=== PATIENT | male | born 1935 | race Caucasian/White ===

== ENCOUNTER 2016-10-15 07:16 | Day surgery (SDC) | payer MEDICARE, BC ==
[2016-10-15] VITALS (11 sets, daily range): BP systolic 127–173; BP diastolic 60–84; PULSE 57–66; TEMP 97.8–98.2
[~2016-10-15] VITALS: Ht 185.4 cm; Wt 119.7 kg
[2016-10-15] MEDS ORDERED: PRIL40 PO (07:48)
[2016-10-15] MEDS ORDERED: PROSCAR 5MG5 MG PO (07:48)
[2016-10-15] MEDS ORDERED: ZYLOPRIM 300MG300 MG PO (07:49)
[2016-10-15] MEDS ORDERED: LASIX 40MG TABL40 MG PO (07:49)
[2016-10-15] MEDS ORDERED: LIPITOR 40MG TA40 MG PO (07:50)
[2016-10-15] MEDS ORDERED: COUMADIN 3MG3 MG/TAB PO (07:50)
[2016-10-15] MEDS ORDERED: PRINIVIL40 MG PO (07:51)
[2016-10-15] MEDS ORDERED: NORVASC 5MG5 MG/TAB PO (07:51)
[2016-10-15] MEDS ORDERED: BYSTOLIC10 MG PO (07:52)
[2016-10-15] MEDS ORDERED: VITAMINC1000TA PO (07:52)
[2016-10-15] MEDS ORDERED: ASPIRIN 32325 MG/TAB PO (07:52)
[2016-10-15] MEDS ORDERED: VITAMIN D32000 IU PO (07:53)
[2016-10-15] MEDS ORDERED: EPA FISH OIL1 SGL PO (07:53)
[2016-10-15] MEDS ORDERED: FIBER0.52 GM PO (07:54)
[2016-10-15] MEDS ORDERED: LOVENOX 3030 MG/0.3 SQ (08:20)
[2016-10-15 08:32] LABS: INR 1.1 (0.8-3.0); PROTHROMBIN TIME 12.7 SECONDS (9.7-12.8)
[2016-10-16 01:58] VITALS: BP 161/75; PULSE 65; TEMP 97.6
[2016-10-16 05:07] VITALS: BP 151/71; PULSE 62; TEMP 97.7
== END 2016-10-16 11:01 | disposition home or self-care (01) ==
LOC: SDCO 07:16 → SURG 12:25 → SDCO 10-16 11:01
PROVIDERS: Surgery
DX: D34 Benign neoplasm of thyroid gland (principal); E04.1 Nontoxic single thyroid nodule; Z79.01 Long term (current) use of anticoagulants; Z95.0 Presence of cardiac pacemaker; Z95.5 Presence of coronary angioplasty implant and graft; Z86.010 Personal history of colon polyps; Z87.891 Personal history of nicotine dependence; J45.909 Unspecified asthma, uncomplicated; I10 Essential (primary) hypertension; I48.91 Unspecified atrial fibrillation; I25.10 Atherosclerotic heart disease of native coronary artery without angina pectoris; Z82.49 Family history of ischemic heart disease and other diseases of the circulatory system; G47.33 Obstructive sleep apnea (adult) (pediatric); K21.9 Gastro-esophageal reflux disease without esophagitis; M19.90 Unspecified osteoarthritis, unspecified site; N19 Unspecified kidney failure
CPT/HCPCS: OP; J0330; J0690; J2270; J2405; J2704; J3010; J7120

== ENCOUNTER 2016-10-28 11:38 | Inpatient (IN) | payer MEDICARE, BC ==
[~2016-10-28] VITALS: Ht 185.4 cm; Wt 121.3 kg
[2016-10-28] VITALS (323 sets, daily range): BP systolic 137–144; BP diastolic 73–86; PULSE 60–95; TEMP 96.8–98.1; O2SAT 81–100
[~2016-10-28 11:38] MED LIST: ASPIRIN 32325 MG/TAB PO; BYSTOLIC10 MG PO; COUMADIN 3MG3 MG/TAB PO; EPA FISH OIL1 SGL PO; FIBER0.52 GM PO; LASIX 40MG TABL40 MG PO; LIPITOR 40MG TA40 MG PO; LOVENOX 3030 MG/0.3 SQ; NORVASC 5MG5 MG/TAB PO; PRIL40 PO; PRINIVIL40 MG PO; PROSCAR 5MG5 MG PO; VITAMIN D32000 IU PO; VITAMINC1000TA PO; ZYLOPRIM 300MG300 MG PO
[2016-10-28] MEDS ORDERED: LASIX 20MG TABL20 MG PO (13:10)
[2016-10-28] MEDS ORDERED: COUMADIN 3MG3 MG/TAB PO (13:42)
[2016-10-28 14:38] LABS: BASO # 0.1 (0.0-0.2); BASO % 0.7 % (0.0-2.0); EOS # 0.1 (0.0-0.7); EOS % 0.6 % (0-4.0); GRAN # 7.6 (1.4-6.5); GRAN % 70.7 % (42.2-75.2); HEMATOCRIT 37.2 % (42.0-52.0); HEMOGLOBIN 12.7 g/dl (13.5-18.0); INR 3.5 (0.8-3.0); LYMPH # 2.3 (1.2-3.4); LYMPH % 21.6 % (20.0-51.0); MEAN CELL VOLUME 92 fl (80.0-100.0); MEAN CORPUSCULAR HEMOGLOBIN 32 pg (27.0-31.0); MEAN CORPUSCULAR HGB CONC 34 g/dl (33.0-37.0); MONO # 0.6 (0.1-0.6); MONO % 5.8 % (1.7-9.3); PLATELET COUNT 207 K/mm3 (130-400); PROTHROMBIN TIME 41.2 SECONDS (9.7-12.8); RED BLOOD COUNT 4.03 M/mm3 (4.20-5.60); WHITE BLOOD COUNT 10.7 K/mm3 (4.8-10.8)
[2016-10-28 14:45] LABS: ADJUSTED CALCIUM 8.6 mg/dL (8.4-10.2); ALBUMIN 3.6 gm/dL (3.5-5.0); BILIRUBIN,TOTAL 0.5 mg/dL (0.0-1.0); CALCIUM 8.3 mg/dL (8.4-10.2); TOTAL PROTEIN 6.6 gm/dL (6.4-8.2)
[2016-10-28 14:48] LABS: POTASSIUM 6.2 mmol/L (3.4-5.0)
[2016-10-28 14:56] LABS: CREATININE, serum 15.31 mg/dL (0.66-1.25)
[2016-10-28 21:33] LABS: CALCIUM 8.4 mg/dL (8.4-10.2)
[2016-10-28 21:40] LABS: POTASSIUM 5.8 mmol/L (3.4-5.0)
[2016-10-28 21:42] LABS: CREATININE, serum 15.14 mg/dL (0.66-1.25)
[2016-10-29] VITALS (528 sets, daily range): BP systolic 137–158; BP diastolic 65–87; PULSE 60–64; TEMP 97–98.2; O2SAT 86–100
[2016-10-29 06:42] LABS: BASO # 0.1 (0.0-0.2); BASO % 0.5 % (0.0-2.0); EOS # 0.3 (0.0-0.7); EOS % 3.1 % (0-4.0); GRAN # 6.2 (1.4-6.5); GRAN % 63.9 % (42.2-75.2); HEMATOCRIT 37.4 % (42.0-52.0); HEMOGLOBIN 12.6 g/dl (13.5-18.0); LYMPH # 2.4 (1.2-3.4); LYMPH % 24.8 % (20.0-51.0); MEAN CELL VOLUME 93 fl (80.0-100.0); MEAN CORPUSCULAR HEMOGLOBIN 31 pg (27.0-31.0); MEAN CORPUSCULAR HGB CONC 34 g/dl (33.0-37.0); MEAN PLATELET VOLUME 11.6 fl (7.4-10.4); MONO # 0.7 (0.1-0.6); MONO % 7.3 % (1.7-9.3); PLATELET COUNT 221 K/mm3 (130-400); RED BLOOD COUNT 4.03 M/mm3 (4.20-5.60); REDCELL DISTRIBUTION WIDTH-CV 14.9 % (11.5-14.5); WHITE BLOOD COUNT 9.8 K/mm3 (4.8-10.8)
[2016-10-29 06:59] LABS: CALCIUM 8.1 mg/dL (8.4-10.2); POTASSIUM 5.2 mmol/L (3.4-5.0)
[2016-10-29 07:14] LABS: CREATININE, serum 15.3 mg/dL (0.66-1.25)
[2016-10-29 08:36] LABS: INR 3.6 (0.8-3.0); PROTHROMBIN TIME 41.8 SECONDS (9.7-12.8)
[2016-10-29 12:40] LABS: PH 6 (5-8); SQUAMOUS EPITHELIAL None Seen /hpf; URINE APPEARANCE Hazy; URINE BACTERIA None Seen /hpf; URINE BILIRUBIN Negative (NEGATIVE); URINE BLOOD 3+ (NEGATIVE); URINE COLOR Red; URINE GLUCOSE Negative (NEGATIVE); URINE KETONE Negative (NEGATIVE); URINE RBC >50 /hpf; URINE UROBILINOGEN Negative (NEGATIVE)
[2016-10-29 12:43] LABS: URINE WBC >50 /hpf
[2016-10-29 17:11] LABS: URINE PROTEIN:CREAT RATIO 1.71 (0.00-0.14)
[2016-10-30 03:28] VITALS: BP 172/79; PULSE 64; TEMP 97.5
[2016-10-30 06:56] LABS: BASO # 0.1 (0.0-0.2); BASO % 0.4 % (0.0-2.0); EOS # 0.2 (0.0-0.7); EOS % 1.6 % (0-4.0); GRAN # 9.9 (1.4-6.5); GRAN % 76.7 % (42.2-75.2); HEMATOCRIT 36.4 % (42.0-52.0); HEMOGLOBIN 12.7 g/dl (13.5-18.0); LYMPH # 1.8 (1.2-3.4); LYMPH % 14.1 % (20.0-51.0); MEAN CELL VOLUME 91 fl (80.0-100.0); MEAN CORPUSCULAR HEMOGLOBIN 32 pg (27.0-31.0); MEAN CORPUSCULAR HGB CONC 35 g/dl (33.0-37.0); MEAN PLATELET VOLUME 11.6 fl (7.4-10.4); MONO # 0.9 (0.1-0.6); MONO % 6.8 % (1.7-9.3); PLATELET COUNT 228 K/mm3 (130-400); RED BLOOD COUNT 4.02 M/mm3 (4.20-5.60); REDCELL DISTRIBUTION WIDTH-CV 14.6 % (11.5-14.5); WHITE BLOOD COUNT 12.9 K/mm3 (4.8-10.8)
[2016-10-30 07:06] LABS: INR 2.5 (0.8-3.0); PROTHROMBIN TIME 29.3 SECONDS (9.7-12.8)
[2016-10-30 07:11] LABS: CALCIUM 7.5 mg/dL (8.4-10.2); POTASSIUM 5.2 mmol/L (3.4-5.0)
[2016-10-30 07:24] LABS: CREATININE, serum 15.67 mg/dL (0.66-1.25)
[2016-10-30 08:00] VITALS: BP 151/76; PULSE 59; TEMP 97.5
[2016-10-30 13:31] VITALS: BP 148/69; PULSE 59; TEMP 97.8
[2016-10-30 16:06] VITALS: BP 142/73; PULSE 61; TEMP 97.6
[2016-10-30 19:02] VITALS: BP 149/70; PULSE 61; TEMP 98.3
[2016-10-30 22:42] VITALS: BP 164/81; PULSE 59; TEMP 98.1
[2016-10-31] VITALS (9 sets, daily range): BP systolic 104–145; BP diastolic 49–78; PULSE 58–74; TEMP 97.9–98.6
[2016-10-31 07:43] LABS: INR 1.5 (0.8-3.0)
[2016-10-31 07:55] LABS: BASO # 0.1 (0.0-0.2); BASO % 0.4 % (0.0-2.0); EOS # 0.1 (0.0-0.7); GRAN # 10.4 (1.4-6.5); GRAN % 74.6 % (42.2-75.2); LYMPH # 2.5 (1.2-3.4); LYMPH % 17.6 % (20.0-51.0); MEAN CELL VOLUME 92 fl (80.0-100.0); MEAN CORPUSCULAR HEMOGLOBIN 31 pg (27.0-31.0); MEAN CORPUSCULAR HGB CONC 34 g/dl (33.0-37.0); MEAN PLATELET VOLUME 11.5 fl (7.4-10.4); MONO # 0.8 (0.1-0.6); PLATELET COUNT 232 K/mm3 (130-400); RED BLOOD COUNT 3.83 M/mm3 (4.20-5.60); REDCELL DISTRIBUTION WIDTH-CV 14.7 % (11.5-14.5)
[2016-10-31 07:56] LABS: HEMATOCRIT 35.1 % (42.0-52.0)
[2016-10-31 08:03] LABS: CALCIUM 7.4 mg/dL (8.4-10.2); POTASSIUM 5.3 mmol/L (3.4-5.0)
[2016-10-31 08:14] LABS: CREATININE, serum 16.37 mg/dL (0.66-1.25)
[2016-11-01] VITALS (18 sets, daily range): BP systolic 130–173; BP diastolic 58–89; PULSE 57–67; TEMP 97.7–98.2
[2016-11-01 08:10] LABS: INR 1.4 (0.8-3.0)
[2016-11-01 22:50] LABS: C-ANCA 18 U/mL (0-99); P-ANCA 6 U/mL (0-99)
[2016-11-01 23:56] LABS: HEPATITIS B CORE AB,TOTAL Negative (()); HEPATITIS B SURFACE AB-QL Negative (())
[2016-11-02 01:14] VITALS: BP 144/68; PULSE 62; TEMP 97.5
[2016-11-02 04:50] VITALS: BP 138/67; PULSE 62; TEMP 98.2
[2016-11-02 08:00] VITALS: BP 130/59; PULSE 61; TEMP 97.8
[2016-11-02 08:06] VITALS: BP 135/65; PULSE 64; TEMP 98.3
[2016-11-02 11:08] LABS: ALBUMIN 3.1 gm/dL (3.5-5.0); ANION GAP 19 mmol/L (7-16); CALCIUM 7.9 mg/dL (8.4-10.2); CHLORIDE 101 mmol/L (98-107); GLUCOSE 109 mg/dL (74-106); PHOSPHOROUS 8.9 mg/dL (2.5-4.5); SODIUM 135 mmol/L (137-145)
[2016-11-02 11:10] LABS: BLOOD UREA NITROGEN > 120 mg/dL (9-20)
[2016-11-02 11:12] LABS: CREATININE, serum 13.85 mg/dL (0.66-1.25)
[2016-11-02 11:13] LABS: CARBON DIOXIDE 14 mmol/L (22-30)
[2016-11-02 13:16] LABS: BASO # 0.1 (0.0-0.2); BASO % 0.5 % (0.0-2.0); EOS # 0.2 (0.0-0.7); EOS % 1.8 % (0-4.0); GRAN # 7.9 (1.4-6.5); GRAN % 76.8 % (42.2-75.2); LYMPH # 1.8 (1.2-3.4); LYMPH % 17.3 % (20.0-51.0); MEAN CELL VOLUME 92 fl (80.0-100.0); MEAN CORPUSCULAR HGB CONC 35 g/dl (33.0-37.0); MEAN PLATELET VOLUME 11.2 fl (7.4-10.4); MONO # 0.3 (0.1-0.6); MONO % 2.7 % (1.7-9.3); PLATELET COUNT 219 K/mm3 (130-400); RED BLOOD COUNT 3.52 M/mm3 (4.20-5.60); REDCELL DISTRIBUTION WIDTH-CV 14.6 % (11.5-14.5); WHITE BLOOD COUNT 10.3 K/mm3 (4.8-10.8)
[2016-11-02 13:20] LABS: HEMATOCRIT 32.3 % (42.0-52.0); HEMOGLOBIN 11.2 g/dl (13.5-18.0); MEAN CORPUSCULAR HEMOGLOBIN 32 pg (27.0-31.0)
[2016-11-02 15:57] VITALS: BP 156/74; PULSE 58
[2016-11-03] VITALS: BP 142/72; PULSE 61
[2016-11-03 06:55] LABS: BASO # 0.1 (0.0-0.2); BASO % 0.4 % (0.0-2.0); EOS # 0.3 (0.0-0.7); EOS % 2.4 % (0-4.0); GRAN # 7.7 (1.4-6.5); GRAN % 65.6 % (42.2-75.2); LYMPH # 2.8 (1.2-3.4); LYMPH % 24.1 % (20.0-51.0); MEAN CELL VOLUME 91 fl (80.0-100.0); MEAN CORPUSCULAR HEMOGLOBIN 31 pg (27.0-31.0); MEAN CORPUSCULAR HGB CONC 34 g/dl (33.0-37.0); MEAN PLATELET VOLUME 11.4 fl (7.4-10.4); MONO # 0.8 (0.1-0.6); MONO % 6.9 % (1.7-9.3); PLATELET COUNT 243 K/mm3 (130-400); RED BLOOD COUNT 3.88 M/mm3 (4.20-5.60); REDCELL DISTRIBUTION WIDTH-CV 14.6 % (11.5-14.5); WHITE BLOOD COUNT 11.7 K/mm3 (4.8-10.8)
[2016-11-03 07:08] LABS: INR 1.3 (0.8-3.0); PROTHROMBIN TIME 14.5 SECONDS (9.7-12.8)
[2016-11-03 07:09] LABS: POTASSIUM 4.4 mmol/L (3.4-5.0)
[2016-11-03 07:10] LABS: HEMATOCRIT 35.4 % (42.0-52.0)
[2016-11-03 07:19] LABS: CREATININE, serum 9.86 mg/dL (0.66-1.25)
[2016-11-03 07:20] VITALS: BP 142/66; PULSE 62; TEMP 97.7
[2016-11-03 12:33] VITALS: BP 151/76; PULSE 62; TEMP 97.4
[2016-11-03 16:19] VITALS: BP 128/49; PULSE 110; TEMP 97.8
[2016-11-03 16:20] VITALS: BP 149/69; PULSE 63; TEMP 98
[2016-11-03 19:58] VITALS: BP 139/73; PULSE 68; TEMP 97.2
[2016-11-04] VITALS (10 sets, daily range): BP systolic 126–158; BP diastolic 64–97; PULSE 58–64; TEMP 97.8–98.7
[2016-11-04 09:57] LABS: ALBUMIN 3.3 gm/dL (3.5-5.0); CALCIUM 8.5 mg/dL (8.4-10.2); PHOSPHOROUS 8.5 mg/dL (2.5-4.5); POTASSIUM 4.4 mmol/L (3.4-5.0)
[2016-11-04 10:00] LABS: CREATININE, serum 10.71 mg/dL (0.66-1.25)
[2016-11-05] VITALS (7 sets, daily range): BP systolic 138–160; BP diastolic 61–80; PULSE 61–64; TEMP 97.4–98.4
[2016-11-05 10:36] LABS: ALBUMIN 2.9 gm/dL (3.5-5.0); CALCIUM 8.3 mg/dL (8.4-10.2); PHOSPHOROUS 6.8 mg/dL (2.5-4.5); POTASSIUM 4.3 mmol/L (3.4-5.0)
[2016-11-05 10:38] LABS: CREATININE, serum 7.86 mg/dL (0.66-1.25)
[2016-11-06 04:10] VITALS: BP 153/78; PULSE 62; TEMP 98
[2016-11-06 07:00] LABS: POTASSIUM 4.1 mmol/L (3.4-5.0)
[2016-11-06 07:51] VITALS: BP 141/65; PULSE 62; TEMP 98.1
[2016-11-06 09:59] LABS: CALCIUM 8.5 mg/dL (8.4-10.2); PHOSPHOROUS 7.3 mg/dL (2.5-4.5)
[2016-11-06 10:04] LABS: CREATININE, serum 8.68 mg/dL (0.66-1.25)
[2016-11-06 10:59] VITALS: BP 155/80; PULSE 63; TEMP 98
[2016-11-06 17:04] VITALS: BP 151/67; PULSE 61; TEMP 97.8
[2016-11-06 20:18] VITALS: BP 141/69; PULSE 59; TEMP 98.1
[2016-11-06 23:02] VITALS: BP 132/58; PULSE 59; TEMP 98.8
[2016-11-07 03:35] VITALS: BP 138/65; PULSE 62; TEMP 97.7
[2016-11-07 07:45] VITALS: BP 149/70; PULSE 62; TEMP 97.7
[2016-11-07 09:51] LABS: ALBUMIN 3.2 gm/dL (3.5-5.0); CALCIUM 8.5 mg/dL (8.4-10.2); POTASSIUM 4.3 mmol/L (3.4-5.0)
[2016-11-07 10:01] LABS: CREATININE, serum 9.69 mg/dL (0.66-1.25); PHOSPHOROUS 9.1 mg/dL (2.5-4.5)
[2016-11-07 11:35] VITALS: BP 130/68; PULSE 65; TEMP 98.7
[2016-11-07 15:17] VITALS: BP 115/58; PULSE 59; TEMP 98.2
[2016-11-07 20:26] VITALS: BP 130/67; PULSE 60; TEMP 97.4
[2016-11-07 23:51] VITALS: BP 135/69; PULSE 62; TEMP 98.1
[2016-11-08] VITALS (10 sets, daily range): BP systolic 117–144; BP diastolic 60–88; PULSE 58–74; TEMP 97–98.6
[2016-11-08 08:47] LABS: INR 1.3 (0.8-3.0); PROTHROMBIN TIME 14.5 SECONDS (9.7-12.8)
[2016-11-08 08:50] LABS: ALBUMIN 3.1 gm/dL (3.5-5.0); CALCIUM 8.4 mg/dL (8.4-10.2); PHOSPHOROUS 4.5 mg/dL (2.5-4.5); POTASSIUM 3.3 mmol/L (3.4-5.0)
[2016-11-08 08:55] LABS: CREATININE, serum 5.26 mg/dL (0.66-1.25)
[2016-11-08 15:25] LABS: STOOL CHLORIDE 61 mmol/L (()); STOOL MAGNESIUM 4 mg/dL (()); STOOL OSMOTIC GAP -30 mOsm/kg (()); STOOL PHOSPHOROUS 19 mg/dL (()); STOOL POTASSIUM 71 mmol/L (())
[2016-11-08 15:42] LABS: STOOL OSMOLALITY 350 mOsm/kg (())
[2016-11-09 02:52] VITALS: BP 135/67; PULSE 96; TEMP 98.6
[2016-11-09 07:28] VITALS: BP 126/59; PULSE 62; TEMP 99.1
[2016-11-09 07:28] LABS: INR 1.4 (0.8-3.0); PROTHROMBIN TIME 15.7 SECONDS (9.7-12.8)
[2016-11-09 07:38] LABS: CALCIUM 8.2 mg/dL (8.4-10.2); POTASSIUM 4.1 mmol/L (3.4-5.0)
[2016-11-09 07:55] LABS: CREATININE, serum 7.56 mg/dL (0.66-1.25)
[2016-11-09 11:25] VITALS: BP 146/66; PULSE 59; TEMP 98.3
[2016-11-09] MEDS ORDERED: LASIX 40MG TABL40 MG PO (12:27)
[2016-11-09] MEDS ORDERED: PROTONIX 40MG T40 MG PO (12:29)
[2016-11-09] MEDS ORDERED: ANTI-DIARRHEAL2 MG PO (12:29)
[2016-11-09] MEDS ORDERED: PREDNISONE20 MG PO (12:32)
== END 2016-11-09 14:00 | disposition home or self-care (01) | DRG 682 ==
LOC: ICU 11:38 → MEDICAL 12:10
PROVIDERS: Internal Medicine; Internal Medicine Gastroenterology; Internal Medicine Nephrology
PROC: 0HBEXZX Excision of Left Lower Arm Skin, External Approach, Diagnostic (ICD-10-PCS; 2016-10-30)
PROC: 02HV33Z Insertion of Infusion Device into Superior Vena Cava, Percutaneous Approach (ICD-10-PCS; 2016-10-31)
PROC: 5A1D60Z (ICD-10-PCS; 2016-10-31)
PROC: 0TB03ZX Excision of Right Kidney, Percutaneous Approach, Diagnostic (ICD-10-PCS; principal; 2016-11-01)
PROC: 0DBN8ZX Excision of Sigmoid Colon, Via Natural or Artificial Opening Endoscopic, Diagnostic (ICD-10-PCS; 2016-11-04)
PROC: 0DB68ZX Excision of Stomach, Via Natural or Artificial Opening Endoscopic, Diagnostic (ICD-10-PCS; 2016-11-08)
PROC: 0DB98ZX Excision of Duodenum, Via Natural or Artificial Opening Endoscopic, Diagnostic (ICD-10-PCS; 2016-11-08)
DX: N17.0 Acute kidney failure with tubular necrosis (principal); K29.51 Unspecified chronic gastritis with bleeding; I13.0 Hypertensive heart and chronic kidney disease with heart failure and stage 1 through stage 4 chronic kidney disease, or unspecified chronic kidney disease; I50.32 Chronic diastolic (congestive) heart failure; E87.2 Acidosis; K26.3 Acute duodenal ulcer without hemorrhage or perforation; N18.3 Chronic kidney disease, stage 3 (moderate); E87.5 Hyperkalemia; I25.10 Atherosclerotic heart disease of native coronary artery without angina pectoris; Z95.5 Presence of coronary angioplasty implant and graft; I48.2 Chronic atrial fibrillation; Z79.01 Long term (current) use of anticoagulants; Z87.891 Personal history of nicotine dependence; Z95.0 Presence of cardiac pacemaker; G47.33 Obstructive sleep apnea (adult) (pediatric); D12.5 Benign neoplasm of sigmoid colon; K64.0 First degree hemorrhoids; K57.30 Diverticulosis of large intestine without perforation or abscess without bleeding; K44.9 Diaphragmatic hernia without obstruction or gangrene
CPT/HCPCS: C1751; C1769; J0690; J0882; J1644; J1815; J2250; J2704; J2997; J3010; J7030; J7040; J7512

== ENCOUNTER 2017-06-27 16:19 | Inpatient (IN) | payer MEDICARE, BC ==
[~2017-06-27] VITALS: Ht 185.4 cm; Wt 122.1 kg
[~2017-06-27 16:19] MED LIST changes: +ANTI-DIARRHEAL2 MG PO; +LASIX 20MG TABL20 MG PO; +PREDNISONE20 MG PO; +PROTONIX 40MG T40 MG PO
[2017-06-27 17:37] VITALS: BP 153/90; PULSE 60; TEMP 97.4
[2017-06-27] MEDS ORDERED: PROSCAR 5MG5 MG PO (17:58)
[2017-06-27] MEDS ORDERED: ZAROXOLYN 2.52.5 MG PO (18:03)
[2017-06-27] MEDS ORDERED: XOPENEX 1.1.25 MG/3 IH (18:03)
[2017-06-27] MEDS ORDERED: DEMADEX100 MG PO (18:04)
[2017-06-27] MEDS ORDERED: COREG12.5 MG PO (18:05)
[2017-06-27] MEDS ORDERED: SYNTHROID0.088 MG/T PO (18:05)
[2017-06-27] MEDS ORDERED: COUMADIN 1MG1 MG/TAB PO (18:05)
[2017-06-27] MEDS ORDERED: VITAMIND3 5000 PO (18:06)
[2017-06-27 19:08] LABS: BASO # 0.1 (0.0-0.2); BASO % 0.6 % (0.0-2.0); EOS # 0.3 (0.0-0.7); EOS % 2.7 % (0-4.0); GRAN # 6.7 (1.4-6.5); GRAN % 66.9 % (42.2-75.2); HEMATOCRIT 37.8 % (42.0-52.0); HEMOGLOBIN 12.3 g/dl (13.5-18.0); LYMPH # 2.3 (1.2-3.4); LYMPH % 22.5 % (20.0-51.0); MEAN CELL VOLUME 94 fl (80.0-100.0); MEAN CORPUSCULAR HEMOGLOBIN 30 pg (27.0-31.0); MEAN CORPUSCULAR HGB CONC 33 g/dl (33.0-37.0); MEAN PLATELET VOLUME 11.1 fl (7.4-10.4); MONO # 0.7 (0.1-0.6); MONO % 6.8 % (1.7-9.3); PLATELET COUNT 152 K/mm3 (130-400); RED BLOOD COUNT 4.04 M/mm3 (4.20-5.60); REDCELL DISTRIBUTION WIDTH-CV 15.7 % (11.5-14.5)
[2017-06-27 19:23] VITALS: BP 152/71; PULSE 61; TEMP 97.4
[2017-06-27 19:24] LABS: CALCIUM 10.1 mg/dL (8.4-10.2); POTASSIUM 3.7 mmol/L (3.4-5.0)
[2017-06-27 19:28] LABS: CREATININE, serum 4.47 mg/dL (0.66-1.25)
[2017-06-27 19:32] LABS: INR 2.7 (0.8-3.0); PROTHROMBIN TIME 31.6 SECONDS (9.7-12.8)
[2017-06-27 23:47] VITALS: BP 134/56; PULSE 59; TEMP 97.7
[2017-06-28 03:46] VITALS: BP 145/65; PULSE 61; TEMP 97.5
[2017-06-28 07:14] LABS: BASO # 0.1 (0.0-0.2); BASO % 0.6 % (0.0-2.0); EOS # 0.3 (0.0-0.7); EOS % 3.5 % (0-4.0); GRAN # 5.6 (1.4-6.5); GRAN % 64.6 % (42.2-75.2); LYMPH % 23.1 % (20.0-51.0); MEAN CELL VOLUME 93 fl (80.0-100.0); MEAN CORPUSCULAR HGB CONC 33 g/dl (33.0-37.0); MONO # 0.7 (0.1-0.6); MONO % 7.7 % (1.7-9.3); PLATELET COUNT 166 K/mm3 (130-400); RED BLOOD COUNT 3.85 M/mm3 (4.20-5.60); REDCELL DISTRIBUTION WIDTH-CV 15.6 % (11.5-14.5)
[2017-06-28 07:24] LABS: HEMATOCRIT 35.8 % (42.0-52.0); HEMOGLOBIN 11.9 g/dl (13.5-18.0); MEAN CORPUSCULAR HEMOGLOBIN 31 pg (27.0-31.0)
[2017-06-28 07:36] LABS: CALCIUM 10.1 mg/dL (8.4-10.2); POTASSIUM 3.3 mmol/L (3.4-5.0)
[2017-06-28 07:47] LABS: CREATININE, serum 4.42 mg/dL (0.66-1.25)
[2017-06-28 09:13] VITALS: BP 166/67; PULSE 59; TEMP 97.5
[2017-06-28 12:34] VITALS: BP 143/59; PULSE 59; TEMP 98.4
[2017-06-28 16:25] VITALS: BP 158/67; PULSE 64; TEMP 98.4
[2017-06-28 17:19] LABS: CALCIUM 9.5 mg/dL (8.4-10.2); POTASSIUM 4.4 mmol/L (3.4-5.0)
[2017-06-28 17:21] LABS: CREATININE, serum 4.56 mg/dL (0.66-1.25)
[2017-06-28 20:09] VITALS: BP 143/63; PULSE 59; TEMP 98.6
[2017-06-28 23:29] VITALS: BP 140/64; PULSE 60; TEMP 98.6
[2017-06-29 05:28] VITALS: BP 133/58; PULSE 61; TEMP 98.5
[2017-06-29 06:46] LABS: BASO # 0.1 (0.0-0.2); BASO % 0.5 % (0.0-2.0); EOS # 0.2 (0.0-0.7); EOS % 2.4 % (0-4.0); GRAN # 6.3 (1.4-6.5); GRAN % 62.3 % (42.2-75.2); HEMATOCRIT 34.3 % (42.0-52.0); HEMOGLOBIN 11.2 g/dl (13.5-18.0); LYMPH # 2.7 (1.2-3.4); LYMPH % 26.2 % (20.0-51.0); MEAN CELL VOLUME 93 fl (80.0-100.0); MEAN CORPUSCULAR HEMOGLOBIN 30 pg (27.0-31.0); MEAN CORPUSCULAR HGB CONC 33 g/dl (33.0-37.0); MEAN PLATELET VOLUME 11.8 fl (7.4-10.4); MONO # 0.8 (0.1-0.6); MONO % 8.2 % (1.7-9.3); PLATELET COUNT 171 K/mm3 (130-400); RED BLOOD COUNT 3.68 M/mm3 (4.20-5.60); REDCELL DISTRIBUTION WIDTH-CV 15.7 % (11.5-14.5)
[2017-06-29 06:52] LABS: CALCIUM 9.6 mg/dL (8.4-10.2); POTASSIUM 3.7 mmol/L (3.4-5.0)
[2017-06-29 06:59] LABS: CREATININE, serum 4.67 mg/dL (0.66-1.25)
[2017-06-29 08:00] VITALS: BP 163/69; PULSE 61; TEMP 98.6
[2017-06-29] MEDS ORDERED: LASIX 80MG TABL80 MG PO (10:46)
[2017-06-29] MEDS ORDERED: ZAROXOLYN5 MG PO (10:46)
== END 2017-06-29 14:08 | disposition home or self-care (01) | DRG 641 ==
LOC: MEDICAL 16:19
PROVIDERS: Internal Medicine
DX: E87.70 Fluid overload, unspecified (principal); I12.0 Hypertensive chronic kidney disease with stage 5 chronic kidney disease or end stage renal disease; N18.5 Chronic kidney disease, stage 5; N25.81 Secondary hyperparathyroidism of renal origin; I48.91 Unspecified atrial fibrillation; E03.9 Hypothyroidism, unspecified; Z79.01 Long term (current) use of anticoagulants; Z95.0 Presence of cardiac pacemaker
CPT/HCPCS: J1940; J7060

== ENCOUNTER → 2017-07-17 | Outpatient (CLI) | payer MEDICARE, BC ==
[~2017-07-17] MED LIST changes: +COREG12.5 MG PO; +COUMADIN 1MG1 MG/TAB PO; +DEMADEX100 MG PO; +LASIX 80MG TABL80 MG PO; +SYNTHROID0.088 MG/T PO; +VITAMIND3 5000 PO; +XOPENEX 1.1.25 MG/3 IH; +ZAROXOLYN 2.52.5 MG PO; +ZAROXOLYN5 MG PO
== END ==
LOC: COL.VAS 12:07
DX: N18.5 Chronic kidney disease, stage 5 (principal)
CPT/HCPCS: G0365

== ENCOUNTER 2018-09-23 07:33 | Outpatient (CLI) | payer MEDICARE, BC ==
[~2018-09-23] VITALS: Ht 185.5 cm; Wt 116.0 kg
[~2018-09-23 07:33] MED LIST changes: -LIPITOR 40MG TA40 MG PO; +LIPITOR 80MG80 MG
--- NOTE | 2018-09-23 08:10 | NUR ---
Pt up to bathroom with gait belt and assist of 1. On return to bed with gaitbelt and assist of 1, pt had skin tear to dorsal surface of L hand. Skin tear 1 cm long, covered with vaseline gauze, gauze and coban.
[2018-09-23 08:26] LABS: INR 2.2 (0.8-3.0); PROTHROMBIN TIME 25.9 SECONDS (9.7-12.8)
[2018-09-23 08:40] VITALS: BP 148/75; PULSE 61; TEMP 97.7
[2018-09-23] MEDS ORDERED: CALCITRIOL PO ×2 (08:55→08:56)
[2018-09-23] MEDS ORDERED: LASIX 40MG TABL40 MG PO (08:59)
[2018-09-23] MEDS ORDERED: ZAROXOLYN 2.52.5 MG PO (09:02)
[2018-09-23] MEDS ORDERED: PROTONIX 40MG T40 MG PO (09:03)
[2018-09-23] MEDS ORDERED: COUMADIN 3MG3 MG/TAB PO (09:03)
[2018-09-23] MEDS ORDERED: ASPIRIN E.C. 8181 MG PO (09:05)
--- NOTE | 2018-09-23 10:15 | NUR ---
PIV removed from L AC with catheter intact. Pt discharged per w/c by nurse with .
== END 2018-09-23 11:51 | disposition home or self-care (01) ==
LOC: COL.CAR 07:33
PROVIDERS: Radiology Diagnostic Radiology
DX: N18.6 End stage renal disease (principal); Z53.8 Procedure and treatment not carried out for other reasons

== ENCOUNTER 2018-09-25 06:00 | Outpatient (CLI) | payer MEDICARE, BC ==
[2018-09-25] VITALS (9 sets, daily range): BP systolic 142–164; BP diastolic 63–82; PULSE 58–63; TEMP 97.6
[~2018-09-25] VITALS: Ht 185.5 cm; Wt 115.9 kg
[~2018-09-25 06:00] MED LIST changes: +ASPIRIN E.C. 8181 MG PO; +CALCITRIOL PO
--- NOTE | 2018-09-25 08:06 | NUR ---
PLEASE SEE MERGE FOR ALL MEDICATION ADMINISTRATION TIMES, SEDATION ASSESSMENT DATA DURING AND POST PROCEDURE.
--- NOTE | 2018-09-25 11:15 | NUR ---
Discharge instructions gien to pt.Pt verbalizes understanding.INT removed,catheter tip intact.Pt escorted out via wheelchair by this nurse.
== END 2018-09-25 12:23 | disposition home health service (06) ==
LOC: COL.CAR 06:00
DX: T82.898A Other specified complication of vascular prosthetic devices, implants and grafts, initial encounter (principal); N18.6 End stage renal disease; E03.9 Hypothyroidism, unspecified; Z88.2 Allergy status to sulfonamides; Z88.1 Allergy status to other antibiotic agents; Z88.8 Allergy status to other drugs, medicaments and biological substances; Z79.01 Long term (current) use of anticoagulants; Z79.82 Long term (current) use of aspirin; Z87.891 Personal history of nicotine dependence
CPT/HCPCS: J1644; J2250; J3010; Q9967

== ENCOUNTER 2019-05-21 11:40 | Inpatient (IN) | payer MEDICARE, BC ==
[~2019-05-21] VITALS: Ht 188 cm; Wt 122.3 kg
[~2019-05-21 11:40] MED LIST changes: -LIPITOR 80MG80 MG; +LIPITOR 80MG80 MG PO
[2019-05-21] MEDS ORDERED: COUMADIN 22.5 MG/TAB PO (12:14)
[2019-05-21 12:20] VITALS: BP 140/57; PULSE 63; TEMP 97.6
[2019-05-21 13:26] LABS: BASO # 0.1 (0.0-0.2); BASO % 0.6 % (0.0-2.0); EOS # 0.2 (0.0-0.7); EOS % 2.6 % (0-4.0); GRAN # 6.7 (1.4-6.5); GRAN % 75.9 % (42.2-75.2); HEMOGLOBIN 10.3 g/dl (13.5-18.0); LYMPH # 1.3 (1.2-3.4); MEAN CELL VOLUME 94 fl (80.0-100.0); MEAN CORPUSCULAR HEMOGLOBIN 31 pg (27.0-31.0); MEAN CORPUSCULAR HGB CONC 33 g/dl (33.0-37.0); MEAN PLATELET VOLUME 12.1 fl (7.4-10.4); MONO # 0.5 (0.1-0.6); MONO % 5.6 % (1.7-9.3); PLATELET COUNT 147 K/mm3 (130-400); RED BLOOD COUNT 3.29 M/mm3 (4.20-5.60); REDCELL DISTRIBUTION WIDTH-CV 15.2 % (11.5-14.5)
[2019-05-21 13:28] LABS: INR 1.9 (0.8-3.0); PROTHROMBIN TIME 22.4 SECONDS (9.7-12.8)
[2019-05-21 14:03] LABS: BILIRUBIN,TOTAL 0.6 mg/dL (0.0-1.0); CALCIUM 10.4 mg/dL (8.4-10.2); CREATININE, serum 6.13 (0.66-1.25); POTASSIUM 3.5 mmol/L (3.4-5.0); TOTAL PROTEIN 7.2 gm/dL (6.4-8.2)
[2019-05-21 16:38] VITALS: BP 140/59; PULSE 63; TEMP 97.4
[2019-05-21 18:35] LABS: MUCOUS Present /lpf; PH 5 (5-8); SQUAMOUS EPITHELIAL None Seen /hpf; URINE APPEARANCE Clear; URINE BACTERIA Rare /hpf; URINE BILIRUBIN Negative (NEGATIVE); URINE BLOOD Negative (NEGATIVE); URINE COLOR Yellow; URINE GLUCOSE Negative (NEGATIVE); URINE KETONE Negative (NEGATIVE); URINE LEUKOCYTE ESTERASE Negative (NEGATIVE); URINE NITRATE Negative (NEGATIVE); URINE PROTEIN(semi-quant) Negative (NEGATIVE); URINE RBC 0-2 /hpf; URINE UROBILINOGEN Negative (NEGATIVE); URINE WBC 0-2 /hpf
[2019-05-21 18:45] LABS: URINE PROTEIN:CREAT RATIO 0.22 (0.00-0.14)
--- NOTE | 2019-05-21 19:34 | NUR ---
Report rcvd from KELLY Diaz. Pt is in room with lab, unable to draw blood. Lab will redraw FENA by 2129. Pt has no c/o pain or discomfort at this time. Call light and personal belongings within reach. No further concerns at this time.
[2019-05-21 20:05] LABS: COLLECTION METHOD CLEAN CATCH
[2019-05-21 22:28] VITALS: BP 140/63; PULSE 64; TEMP 97.6
[2019-05-21 22:40] LABS: CREATININE, serum 6.28 (0.66-1.25)
[2019-05-22] VITALS (7 sets, daily range): BP systolic 143–148; BP diastolic 51–64; PULSE 58–66; TEMP 97.4–98.1
[2019-05-22 06:26] LABS: BASO % 0.5 % (0.0-2.0); EOS # 0.3 (0.0-0.7); EOS % 2.9 % (0-4.0); GRAN # 6.1 (1.4-6.5); GRAN % 69.8 % (42.2-75.2); LYMPH # 1.7 (1.2-3.4); MEAN CELL VOLUME 95 fl (80.0-100.0); MEAN CORPUSCULAR HGB CONC 33 g/dl (33.0-37.0); MEAN PLATELET VOLUME 11.8 fl (7.4-10.4); MONO # 0.6 (0.1-0.6); MONO % 6.5 % (1.7-9.3); PLATELET COUNT 131 K/mm3 (130-400); RED BLOOD COUNT 3.14 M/mm3 (4.20-5.60); REDCELL DISTRIBUTION WIDTH-CV 15.3 % (11.5-14.5)
[2019-05-22 06:31] LABS: PROTHROMBIN TIME 24.4 SECONDS (9.7-12.8)
[2019-05-22 06:38] LABS: HEMATOCRIT 29.8 % (42.0-52.0); HEMOGLOBIN 9.9 g/dl (13.5-18.0); MEAN CORPUSCULAR HEMOGLOBIN 32 pg (27.0-31.0)
[2019-05-22 06:43] LABS: ALBUMIN 3.9 gm/dL (3.5-5.0); CALCIUM 9.9 mg/dL (8.4-10.2); CREATININE, serum 6.09 (0.66-1.25); PHOSPHOROUS 8.2 mg/dL (2.5-4.5); POTASSIUM 3.3 mmol/L (3.4-5.0)
--- NOTE | 2019-05-22 10:18 | NUR ---
Pt assessment completed and charted. Morning medications administered per JUN. Pt sitting in bed, A&O. Pt denies pain at this time. pt c/o SOB, "all the time". RAC fistula w/ bruit and thrill present. LAC IV w/ 1/2 NS at 50ml/hr running w/o complications. pt is on room air, breathing even and unlabored, satting >92%. Pt used bipap for a little while overnight but "it made too much noise". Pt denies dizziness, N/V/D, abdominal pain. No other concerns expressed at this time. Call light within reach.
--- NOTE | 2019-05-22 12:37 | NUR ---
Plan: To return home to [place] with Kika C or H. Assess: SW met with patient, spouse, and son in room. Patient gave verbal auth to speak infront of guest. Patient reports that they reside in . Patient reports that he uses a walker and a cane for mobility. Patient reports that he has a pacemaker and monitor. Patient reports the use of a Bypap machince. Patient reports that his is his DPOA. Patient reports that his son is a contact if needed Don . Patient reports PCP is Dr. Miller. Patient obtains RX from [facility] in . is to transport home. Action: SW offered HHS.through medicare.gov Patient Declined. Patient reports independence in ADL's. SW offered resources and community supports. No additional needs identified. Nothing Follows
--- NOTE | 2019-05-22 17:44 | NUR ---
Pt has had uneventful day. Requested stool softner which was ordered and administered. pt has been assisted to bedpan twice today w/ no results. also brought pts cpap for tonight. No other concerns expressed at this time.
--- NOTE | 2019-05-22 19:00 | NUR ---
Report rcvd from KELLY Blum. Pt laying in bed. Appetite decreased, pt states he is having a hard time eating d/t 3 days of constipation. Daytime RN states his output was decent with >800 put out. Assessment completed, BIANCA Fistula bruit and thrill present with strong pulse. Pt denies any pain at this time. Edema in BLE remains present. Pt has had increased weakness that has him requesting a bed hoover for bowel movements. Per report, during attempts at a bowel movement, he is just passing gas. Pt's call light within reach. No further concerns at this time.
[2019-05-23 03:27] VITALS: BP 111/62; PULSE 58; TEMP 97.8
--- NOTE | 2019-05-23 04:06 | NUR ---
Pt has had an uneventful night. Pt motta output right at 475mls. Wrapped IV sight with Coban. Pt states he's feeling as though his appetite has decreased since being constipated. Multiple attempts on manager night with a bed hoover, however he still remains gassy. Ducolax has not "kicked in" per pt. Pt has not voiced any other needs or wants. Cpap has remained on all night, pt sleeping very well. Call light within reach, no further concerns at this time.
[2019-05-23 06:31] LABS: BASO % 0.3 % (0.0-2.0); EOS # 0.2 (0.0-0.7); EOS % 1.7 % (0-4.0); GRAN # 7.5 (1.4-6.5); GRAN % 75.5 % (42.2-75.2); LYMPH # 1.7 (1.2-3.4); LYMPH % 16.6 % (20.0-51.0); MEAN CELL VOLUME 94 fl (80.0-100.0); MEAN CORPUSCULAR HGB CONC 33 g/dl (33.0-37.0); MEAN PLATELET VOLUME 12.2 fl (7.4-10.4); MONO # 0.6 (0.1-0.6); MONO % 5.6 % (1.7-9.3); PLATELET COUNT 135 K/mm3 (130-400); RED BLOOD COUNT 3.15 M/mm3 (4.20-5.60); REDCELL DISTRIBUTION WIDTH-CV 15.1 % (11.5-14.5)
[2019-05-23 06:38] LABS: INR 2.1 (0.8-3.0); PROTHROMBIN TIME 25.6 SECONDS (9.7-12.8)
[2019-05-23 06:45] LABS: HEMATOCRIT 29.5 % (42.0-52.0); HEMOGLOBIN 9.8 g/dl (13.5-18.0); MEAN CORPUSCULAR HEMOGLOBIN 31 pg (27.0-31.0)
[2019-05-23 06:54] LABS: ALBUMIN 3.7 gm/dL (3.5-5.0); CALCIUM 9.3 mg/dL (8.4-10.2); CREATININE, serum 5.94 (0.66-1.25); PHOSPHOROUS 7.8 mg/dL (2.5-4.5); POTASSIUM 3.3 mmol/L (3.4-5.0)
--- NOTE | 2019-05-23 07:07 | NUR ---
Report given to KELLY Blum. No further concerns at this time.
[2019-05-23 08:54] VITALS: BP 146/76; PULSE 59; TEMP 98
--- NOTE | 2019-05-23 11:58 | NUR ---
Pt assessment completed and charted. pt A&O. Pt denies pain aside from "gas pains". pt uncomfortable d/t not having BM in 4 days, pt is gassy. Pt appetite has decreased d/t "constipation" according to pt. Pt on room air, satting well, breathing is even and unlabored, per pt has chronic SOB. Pt did wear cpap overnight and slept well, no issues. LAC IV w/ 1/2 NS running at 50 ml/hr w/o complications. BS hyperactive. General edema. No other concerns expressed at this time.
[2019-05-23 12:00] VITALS: BP 136/57; PULSE 60; TEMP 97.6
--- NOTE | 2019-05-23 15:27 | NUR ---
Verbal orders from Ignacio for tap water enema, motta to be dc'd and IVF dc'd. Pt tolerating liquids well, encouraged PO intake. This nurse went to administer enema, pt starting to have med soft semi-solid bowel movement. Pt reports some minor relief. 1/2 bag tap water enema administered. pt put on bedpan, no more BMs so far. pt reports still being slightly uncomfortable but some relief. IVF dc'd. No other concerns at this time.
[2019-05-23 15:54] VITALS: BP 142/58; PULSE 60; TEMP 97.7
--- NOTE | 2019-05-23 16:45 | NUR ---
Report rcvd from KELLY Blum. Pt had a smear BM. No concerns at this time.
--- NOTE | 2019-05-23 18:26 | NUR ---
Check and change on pt, smear. Administered PRN dulcolax. No other concerns.
--- NOTE | 2019-05-23 19:00 | NUR ---
REPORT RCVD FROM DAY RN. PT IS LAYING IN BED. PT HAS NO C/O PAIN OR DISCOMFORT AT THIS TIME. NO FURTHER CONCERNS. CALL LIGHT WITHIN REACH.
[2019-05-23 19:45] VITALS: BP 135/42; PULSE 59; TEMP 97.4
--- NOTE | 2019-05-23 19:45 | NUR ---
Pt had sm BM. Changed chucks pad as pt is not wearing a brief.
[2019-05-24 00:51] VITALS: BP 133/54; PULSE 65; TEMP 97.6
[2019-05-24 03:38] VITALS: BP 148/64; PULSE 66; TEMP 97.6
--- NOTE | 2019-05-24 06:59 | NUR ---
PT HAD AN UNEVENTFUL NIGHT. SLEPT VERY WELL. OUTPUT HAS BEEN 375 SINCE [place] REMOVAL. REPORT GIVEN TO KELLY ARVIZU AND KELLY MACARIO. TRANSFER OF CARE COMPLETE.
[2019-05-24 07:02] LABS: INR 2.1 (0.8-3.0); PROTHROMBIN TIME 25.5 SECONDS (9.7-12.8)
[2019-05-24 08:04] VITALS: BP 146/49; PULSE 59; TEMP 97.6
[2019-05-24 08:05] LABS: BASO % 0.3 % (0.0-2.0); EOS # 0.2 (0.0-0.7); EOS % 1.9 % (0-4.0); GRAN # 7.4 (1.4-6.5); GRAN % 74.1 % (42.2-75.2); HEMATOCRIT 29.8 % (42.0-52.0); HEMOGLOBIN 10.1 g/dl (13.5-18.0); LYMPH # 1.8 (1.2-3.4); LYMPH % 17.9 % (20.0-51.0); MEAN CELL VOLUME 93 fl (80.0-100.0); MEAN CORPUSCULAR HEMOGLOBIN 32 pg (27.0-31.0); MEAN CORPUSCULAR HGB CONC 34 g/dl (33.0-37.0); MEAN PLATELET VOLUME 11.9 fl (7.4-10.4); MONO # 0.6 (0.1-0.6); MONO % 5.5 % (1.7-9.3); PLATELET COUNT 105 K/mm3 (130-400); RED BLOOD COUNT 3.21 M/mm3 (4.20-5.60); REDCELL DISTRIBUTION WIDTH-CV 15.2 % (11.5-14.5)
[2019-05-24 08:59] LABS: CALCIUM 9.4 mg/dL (8.4-10.2); CREATININE, serum 6.08 (0.66-1.25); PHOSPHOROUS 8.1 mg/dL (2.5-4.5); POTASSIUM 3.6 mmol/L (3.4-5.0)
--- NOTE | 2019-05-24 10:33 | NUR ---
Patient is A/O. consumed 100% of breakfast. had a Bowel Movement of a medium size this morning. patient was informed that he will be working with PT/OT to build his strength.
--- NOTE | 2019-05-24 12:44 | NUR ---
Initial visit; Patient thanked Spoon Maker for looking in on him and offering spiritual care.
[2019-05-24 12:49] VITALS: BP 142/70; PULSE 60; TEMP 97.5
[2019-05-24 16:02] VITALS: BP 128/57; PULSE 61; TEMP 97.3
[2019-05-24 19:12] VITALS: BP 130/54; PULSE 64; TEMP 97.3
--- NOTE | 2019-05-24 20:12 | NUR ---
Pt assessment complete. Pt is laying in bed upon entry, he is A/O x4. His breathing is even and unlabored on RA. He denies any pain. No N/V. Continues to have BM's, would like to hold off on enema for today. POC to stay NPO after midnight and have dialysis catheter placed discussed with patient who verbalizes understanding. Has no further needs. Call light within reach.
--- NOTE | 2019-05-24 20:30 | NUR ---
Bedside shift report recieved. Pt resting in bed, denies needs at this time. Previous shift assessment agreed upon by this RN. Call light in reach, bed alarm on. Will continue to monitor.
[2019-05-24 22:25] LABS: HEPATITIS B SURFACE ANTIBODY <2.0 (())
[2019-05-24 22:28] LABS: HEPATITIS B SURFACE ANTIGEN Negative (Negative); HEPATITIS C VIRUS ANTIBODY Negative (Negative)
[2019-05-25] VITALS (7 sets, daily range): BP systolic 106–140; BP diastolic 47–79; PULSE 52–62; TEMP 97.4–98
[2019-05-25 06:53] LABS: BASO % 0.3 % (0.0-2.0); EOS # 0.3 (0.0-0.7); EOS % 2.7 % (0-4.0); GRAN # 6.8 (1.4-6.5); GRAN % 74.2 % (42.2-75.2); LYMPH # 1.5 (1.2-3.4); LYMPH % 16.7 % (20.0-51.0); MEAN CELL VOLUME 94 fl (80.0-100.0); MEAN CORPUSCULAR HGB CONC 33 g/dl (33.0-37.0); MEAN PLATELET VOLUME 12.5 fl (7.4-10.4); MONO # 0.5 (0.1-0.6); MONO % 5.7 % (1.7-9.3); PLATELET COUNT 131 K/mm3 (130-400); RED BLOOD COUNT 3.17 M/mm3 (4.20-5.60); REDCELL DISTRIBUTION WIDTH-CV 14.9 % (11.5-14.5)
[2019-05-25 07:00] LABS: HEMATOCRIT 29.8 % (42.0-52.0); HEMOGLOBIN 9.9 g/dl (13.5-18.0); MEAN CORPUSCULAR HEMOGLOBIN 31 pg (27.0-31.0)
[2019-05-25 07:06] LABS: ALBUMIN 3.6 gm/dL (3.5-5.0); CALCIUM 9.2 mg/dL (8.4-10.2); CREATININE, serum 6.43 (0.66-1.25); PHOSPHOROUS 8.1 mg/dL (2.5-4.5); POTASSIUM 3.8 mmol/L (3.4-5.0)
[2019-05-25 07:16] LABS: INR 1.6 (0.8-3.0); PROTHROMBIN TIME 18.8 SECONDS (9.7-12.8)
--- NOTE | 2019-05-25 08:02 | NUR ---
Patient is awake in bed. he took his morning med. denies any form of pain. He said he wont be needing the enema anymore because he his voiding very well. Patient signed his consent form form Dialysis catherer placement.
--- NOTE | 2019-05-25 08:54 | NUR ---
Pt left for dialysis catheter placement at this time.
--- NOTE | 2019-05-25 09:13 | NUR ---
SEE MEREBLANCA FOR ALL MEDICATION ADMINISTRATION TIMES AND INTRA/POST SEDATION ASSESSMENT
--- NOTE | 2019-05-25 10:22 | NUR ---
Patient is back from livestock laborer. His dialysis catherer site is dry and clean. Patient denies any pain at the moment.
--- NOTE | 2019-05-25 11:13 | NUR ---
Pt taken down to dialysis at this time.
--- NOTE | 2019-05-25 13:20 | NUR ---
Patient is in dialysis
--- NOTE | 2019-05-25 14:18 | NUR ---
Patient is back from dialysis. KELLY Girardinternal control manager nurse said she got 1,000ml of fluid during dialysis. Patient is in bed resting. Post dialysis vitals 129/60 BP, 59 HR, 97.7 T, 24 RR, 96% O2.
--- NOTE | 2019-05-25 14:19 | NUR ---
Physical therapy ordered for the patient. building services coordinator will continue to follow for discharge recommendations.
--- NOTE | 2019-05-25 18:13 | NUR ---
Pt had small amount of bleeding from dialysis catheter, dressing reinforced and Dr. Pierre notified. On recheck bleeding not increased. Bed bath provided to patient. Feeling "drained" from dialysis. Continued to have smears and small BM today. No needs at this time. Call light within reach. Will continue to monitor.
--- NOTE | 2019-05-25 18:14 | NUR ---
Dialysis catherer insertion site dressing was socked with blood around 4pm after 2 hours after dialysis. gauze was placed around dressing. dressing was reassessed 5pm and 6pm, no additional drainage noted. Dr Pierre was informed about the bleeding and the curent condition. Patient is A/O, He is watching TV on his bed at the moment.
--- NOTE | 2019-05-25 20:30 | NUR ---
Shift assessment complete. Pt resting in bed, awake, a&o, cooperative c cares. Pt denies pain or other c/o at this time. INT patent. New HD cath to R chest noted, some bleeding from site, dressing marked et unchanged. Pt denies needs. Call light in reach, will continue to monitor.
[2019-05-26 00:44] VITALS: BP 129/47; PULSE 59; TEMP 97.5
[2019-05-26 04:00] VITALS: BP 140/58; PULSE 58; TEMP 98.5
[2019-05-26 07:30] VITALS: BP 144/59; PULSE 59; TEMP 98
--- NOTE | 2019-05-26 08:25 | NUR ---
Pt awake and alert this morning upon entry, no C/O pain at this time, shift assessments complete, left Pt call light in reach, bed in lowest position.
[2019-05-26 11:22] LABS: BASO % 0.3 % (0.0-2.0); EOS # 0.3 (0.0-0.7); GRAN % 74.6 % (42.2-75.2); HEMOGLOBIN 9.3 g/dl (13.5-18.0); LYMPH # 1.4 (1.2-3.4); MEAN CELL VOLUME 95 fl (80.0-100.0); MEAN CORPUSCULAR HEMOGLOBIN 31 pg (27.0-31.0); MEAN CORPUSCULAR HGB CONC 33 g/dl (33.0-37.0); MEAN PLATELET VOLUME 12.4 fl (7.4-10.4); MONO # 0.6 (0.1-0.6); MONO % 6.7 % (1.7-9.3); PLATELET COUNT 130 K/mm3 (130-400); RED BLOOD COUNT 2.96 M/mm3 (4.20-5.60); REDCELL DISTRIBUTION WIDTH-CV 15.2 % (11.5-14.5)
[2019-05-26 11:23] LABS: INR 1.5 (0.8-3.0); PROTHROMBIN TIME 18.3 SECONDS (9.7-12.8)
[2019-05-26 11:31] LABS: ALBUMIN 3.5 gm/dL (3.5-5.0); CALCIUM 9.1 mg/dL (8.4-10.2); CREATININE, serum 5.85 (0.66-1.25); POTASSIUM 3.9 mmol/L (3.4-5.0)
[2019-05-26 16:41] VITALS: BP 125/61; PULSE 58; TEMP 97.5
--- NOTE | 2019-05-26 18:19 | NUR ---
Pt resting in the room today, left floor late this morning for dialysis and returned early this afternoon, no C/O pain today. Pt had a small bowel movement this afternoon, VS have remained stable.
[2019-05-26 19:08] VITALS: BP 139/38; PULSE 60; TEMP 97.7
[2019-05-26 19:14] VITALS: BP 140/55
--- NOTE | 2019-05-26 20:00 | NUR ---
Received report from KELLY Arroyo. Assessment complete. Alert and oriented. Denies any pain or discomfort at this time. States feeling tired after having dialysis today. Meds administered. Dialysis cath to rt upper chest intact, no reddness, swelling or drainage observed. RFA fistula with bruit and thrill. INT to LAC intact, flushed, dressing CDI. Urinal at bedside. Needs met. Call light within reach.
[2019-05-27] VITALS (7 sets, daily range): BP systolic 108–139; BP diastolic 48–60; PULSE 59–69; TEMP 97.5–98.3
--- NOTE | 2019-05-27 05:51 | NUR ---
Pt made no complaints during the night. Needs met. Call light within reach.
[2019-05-27 06:50] LABS: BASO % 0.3 % (0.0-2.0); EOS # 0.2 (0.0-0.7); GRAN % 76.3 % (42.2-75.2); HEMOGLOBIN 10.1 g/dl (13.5-18.0); LYMPH # 1.7 (1.2-3.4); LYMPH % 14.2 % (20.0-51.0); MEAN CELL VOLUME 96 fl (80.0-100.0); MEAN CORPUSCULAR HEMOGLOBIN 31 pg (27.0-31.0); MEAN CORPUSCULAR HGB CONC 33 g/dl (33.0-37.0); MEAN PLATELET VOLUME 12.3 fl (7.4-10.4); MONO # 0.8 (0.1-0.6); MONO % 6.7 % (1.7-9.3); PLATELET COUNT 138 K/mm3 (130-400); RED BLOOD COUNT 3.25 M/mm3 (4.20-5.60); REDCELL DISTRIBUTION WIDTH-CV 15.4 % (11.5-14.5)
--- NOTE | 2019-05-27 06:59 | NUR ---
Report given to KELLY Arroyo.
[2019-05-27 07:05] LABS: ALBUMIN 3.8 gm/dL (3.5-5.0); CALCIUM 9.3 mg/dL (8.4-10.2); CREATININE, serum 4.84 (0.66-1.25); PHOSPHOROUS 5.3 mg/dL (2.5-4.5)
[2019-05-27 07:17] LABS: HEMATOCRIT 31.1 % (42.0-52.0)
--- NOTE | 2019-05-27 08:14 | NUR ---
Pt napping upon entry, easily awakened, no C/O pain at this time, shift assessments complete, moved Pt to dialysis.
[2019-05-27] MEDS ORDERED: LASIX 80MG TABL80 MG PO (11:34)
--- NOTE | 2019-05-27 13:31 | NUR ---
Tie Cutter spoke with Dr. Pierre who advised patient may need a wheelchair or walker with a seat upon discharge. SW met with patient who reports he has a walker with a seat but that it's not very sturdy. Patient reports Medicare covered this walker and he obtained it from [facility] about six months ago. SW advised that if Medicare covered his walker, they would not cover a wheelchair or additional walker. Patient understood and stated he could afford to pay out of pocket for a different walker if needed. Patient stated he is going to try to make it work with his current walker but if that doesn't work out he will go to [facility] to look into a different walker. SW collaborated the above information to Dr. Pierre. Patient to discharge home today.
--- NOTE | 2019-05-27 17:50 | NUR ---
Pt rested in the room today, no C/O pain. Pt had dialysis this morning, and returned to the floor about 1200. Pt up to the recliner this afternoon with assistance of PT, was weak and not able to stand from the recliner, Pt stated that he has a lift recliner at home to assist standing. after resting this afternoon Pt was able to stand from the recliner and walk around the bed and returned to bed. VS have remained stable.
--- NOTE | 2019-05-27 18:40 | NUR ---
Report given to KELLY Moise
--- NOTE | 2019-05-27 20:00 | NUR ---
Received report from KELLY Arroyo. Assessment complete. Alert and oriented. Denies any pain or discomfort at this time. Meds administered. HD to Rt chest intact, dressing CDI, no redness, swelling or drainage observed. Encouraged pt to get out of bed and ambulate. Pt verablized understanding and will call staff when he is ready. INT to LAC intact, flushed, dressing CDI. Walker at bedside. Needs met. Call light within reach.
--- NOTE | 2019-05-27 21:21 | NUR ---
Aide ambulated with pt with use of walker to/from restroom without complaints. Steady gait.
--- NOTE | 2019-05-28 01:45 | NUR ---
Pt sleeping in bed with cpap in place. Call light within reach.
[2019-05-28 02:47] VITALS: BP 120/55; PULSE 60; TEMP 97.6
--- NOTE | 2019-05-28 05:56 | NUR ---
Pt uneventful during this shift. slept with cpap on. meds administered. needs met. call light within reach.
--- NOTE | 2019-05-28 06:48 | NUR ---
Report given to KELLY Arroyo.
[2019-05-28 06:50] LABS: BASO # 0.1 (0.0-0.2); BASO % 0.5 % (0.0-2.0); EOS # 0.2 (0.0-0.7); EOS % 2.1 % (0-4.0); GRAN # 8.1 (1.4-6.5); GRAN % 74.3 % (42.2-75.2); LYMPH # 1.6 (1.2-3.4); MEAN CELL VOLUME 97 fl (80.0-100.0); MEAN CORPUSCULAR HGB CONC 32 g/dl (33.0-37.0); MEAN PLATELET VOLUME 11.8 fl (7.4-10.4); MONO # 0.8 (0.1-0.6); MONO % 7.6 % (1.7-9.3); PLATELET COUNT 123 K/mm3 (130-400); RED BLOOD COUNT 3.04 M/mm3 (4.20-5.60); REDCELL DISTRIBUTION WIDTH-CV 15.3 % (11.5-14.5)
[2019-05-28 06:52] LABS: PROTHROMBIN TIME 23.4 SECONDS (9.7-12.8)
[2019-05-28 06:56] LABS: ALBUMIN 3.4 gm/dL (3.5-5.0); CREATININE, serum 3.84 (0.66-1.25); HEMATOCRIT 29.5 % (42.0-52.0); HEMOGLOBIN 9.4 g/dl (13.5-18.0); MEAN CORPUSCULAR HEMOGLOBIN 31 pg (27.0-31.0); PHOSPHOROUS 4.4 mg/dL (2.5-4.5); POTASSIUM 3.9 mmol/L (3.4-5.0)
--- NOTE | 2019-05-28 07:56 | NUR ---
Pt awake and alert this morning, has C/O nasal congestion this morning, no C/O pain, shift assessment complete, left Pt call light in reach, bed in lowest position.
[2019-05-28 09:04] VITALS: BP 124/47; PULSE 59; TEMP 97.8
--- NOTE | 2019-05-28 11:25 | NUR ---
Grinding Machine Operator Portable spoke with Kirstin, IPR Director about screening for patient which was put in yesterday afternoon. Kirstin advised that they could not accept patient. SW checked PT note from 05/28/2019 and recommendation was home with spouse. SW to continue to follow.
--- NOTE | 2019-05-28 15:05 | NUR ---
Qualification Engineer met with patient to revisit discharge plan. Patient states he is going home today and was not interested in any post acute rehab. SW presented and explained IM form to patient. Patient's provided signature per patient's request. Patient declined copy and SW placed form on chart. PT note recommends home with spouse. No additional needs at this time.
--- NOTE | 2019-05-28 16:15 | NUR ---
Pt discharged to home, discussed discharge packet with Pt and spouse, escorted Pt to entrance, Pt left with spouse via private transportation.
== END 2019-05-28 16:40 | disposition home or self-care (01) | DRG 674 ==
LOC: MEDICAL 11:40
PROVIDERS: ADMIT Internal Medicine Nephrology
PROC: 0JH60XZ Insertion of Tunneled Vascular Access Device into Chest Subcutaneous Tissue and Fascia, Open Approach (ICD-10-PCS; principal; 2019-05-25)
PROC: 02HV33Z Insertion of Infusion Device into Superior Vena Cava, Percutaneous Approach (ICD-10-PCS; 2019-05-25)
PROC: 5A1D70Z Performance of Urinary Filtration, Intermittent, Less than 6 Hours Per Day (ICD-10-PCS; 2019-05-25)
DX: I12.9 Hypertensive chronic kidney disease with stage 1 through stage 4 chronic kidney disease, or unspecified chronic kidney disease (principal); N18.5 Chronic kidney disease, stage 5; N13.8 Other obstructive and reflux uropathy; E66.9 Obesity, unspecified; I48.91 Unspecified atrial fibrillation; D63.1 Anemia in chronic kidney disease; I25.10 Atherosclerotic heart disease of native coronary artery without angina pectoris; N40.1 Benign prostatic hyperplasia with lower urinary tract symptoms; K59.00 Constipation, unspecified; E78.5 Hyperlipidemia, unspecified; Z79.82 Long term (current) use of aspirin; Z79.01 Long term (current) use of anticoagulants; Z95.0 Presence of cardiac pacemaker; Z88.2 Allergy status to sulfonamides; Z88.3 Allergy status to other anti-infective agents; Z99.2 Dependence on renal dialysis
CPT/HCPCS: J0690; J1644; J2250; J3010; J3430; J7030

== ENCOUNTER → 2019-08-31 | Outpatient (CLI) | payer MEDICARE, BC ==
--- NOTE | 2019-08-24 13:21 | NUR ---
CALLED OFFICE ASKING FOR ORDER, SPOKE TO YESENIA
[~2019-08-31] VITALS: Ht 188 cm; Wt 109.4 kg
[~2019-08-31] MED LIST changes: +COUMADIN 22.5 MG/TAB PO
[2019-08-31 10:38] VITALS: BP 123/55; PULSE 65
[2019-08-31 10:38] LABS: INR 1.3 (0.8-3.0)
--- NOTE | 2019-08-31 10:58 | NUR ---
AUTO AIR CONDITIONING MECHANIC CALLED AT 1045, SPOKE TO KELLY SWANSON
[2019-08-31 12:30] VITALS: BP 136/64; PULSE 60
== END ==
LOC: COL.RAD 10:07
PROVIDERS: Internal Medicine Nephrology
DX: I77.0 Arteriovenous fistula, acquired (principal)

== ENCOUNTER 2020-05-23 11:42 | Outpatient (CLI) | payer MEDICARE, BC ==
[~2020-05-23] VITALS: Ht 188 cm; Wt 109.9 kg
[2020-05-23] MEDS ORDERED: LASIX 80MG TABL80 MG PO (12:16)
[2020-05-23] MEDS ORDERED: CALCITRIOL PO (12:22)
[2020-05-23 12:25] VITALS: BP 115/53; PULSE 65; TEMP 97.7
[2020-05-23 16:30] VITALS: BP 132/66; PULSE 61
--- NOTE | 2020-05-23 16:30 | NUR ---
Report from Aruna MENDOZA. Transferred from labor relations analyst by bed. Right upper arm fistula gauze to upper and bandaid to lower, bruit and thrill noted as well as strong pulses. VSS.
[2020-05-23 16:45] VITALS: BP 130/64; PULSE 62
[2020-05-23 17:00] VITALS: BP 133/59; PULSE 63
[2020-05-23 17:15] VITALS: BP 129/61; PULSE 61
[2020-05-23 17:30] VITALS: BP 132/58; PULSE 62
--- NOTE | 2020-05-23 17:30 | NUR ---
Dr. Houston in to see pt for discharge. INT discontinued intact. Discharge instructions given. Transferred to private car by dimple
== END 2020-05-23 17:30 | disposition home or self-care (01) ==
LOC: COL.CAR 11:42
DX: T85.828A Fibrosis due to other internal prosthetic devices, implants and grafts, initial encounter (principal); E03.9 Hypothyroidism, unspecified; Z99.2 Dependence on renal dialysis; Z88.2 Allergy status to sulfonamides; Z88.1 Allergy status to other antibiotic agents; Z88.8 Allergy status to other drugs, medicaments and biological substances; Z79.82 Long term (current) use of aspirin; Z79.01 Long term (current) use of anticoagulants; Z87.891 Personal history of nicotine dependence
CPT/HCPCS: J1644; J2250; J3010; Q9967

== ENCOUNTER 2020-05-31 10:58 | Inpatient (IN) | payer MEDICARE, BC ==
[~2020-05-31] VITALS: Ht 188 cm; Wt 123.4 kg
[2020-05-31 11:26] LABS: BASO # 0.1 (0.0-0.2); BASO % 0.4 % (0.0-2.0); EOS # 0.1 (0.0-0.7); EOS % 0.9 % (0-4.0); GRAN % 70.6 % (42.2-75.2); HEMOGLOBIN 10.5 g/dl (13.5-18.0); LYMPH # 2.6 (1.2-3.4); LYMPH % 20.1 % (20.0-51.0); MEAN CELL VOLUME 103 fl (80.0-100.0); MEAN CORPUSCULAR HEMOGLOBIN 33 pg (27.0-31.0); MEAN CORPUSCULAR HGB CONC 33 g/dl (33.0-37.0); MEAN PLATELET VOLUME 10.7 fl (7.4-10.4); MONO # 0.9 (0.1-0.6); MONO % 7.3 % (1.7-9.3); PLATELET COUNT 221 K/mm3 (130-400); RED BLOOD COUNT 3.15 M/mm3 (4.20-5.60); REDCELL DISTRIBUTION WIDTH-CV 14.5 % (11.5-14.5)
[2020-05-31 11:29] LABS: HEMATOCRIT 32.3 % (42.0-52.0)
[2020-05-31 11:45] LABS: ERYTHROCYTE SEDIMENTATION RATE 75 mm/hr (0-30)
[2020-05-31 12:20] LABS: ALBUMIN 4.1 gm/dL (3.5-5.0); BILIRUBIN,TOTAL 0.6 mg/dL (0.0-1.0); CALCIUM 9.7 mg/dL (8.4-10.2); CREATININE, serum 10.86 (0.66-1.25); POTASSIUM 5.6 mmol/L (3.4-5.0); TOTAL PROTEIN 7.3 gm/dL (6.4-8.2)
[2020-05-31 12:21] LABS: TROPONIN-I 3.39 ng/mL (0.000-0.035)
[2020-05-31 12:43] LABS: C-REACTIVE PROTEIN 4.3 mg/dL (0.0-0.9)
[2020-05-31] MEDS ORDERED: NEURONTIN100 MG/CAP PO (15:45)
[2020-05-31 15:50] VITALS: BP 112/52; PULSE 67; TEMP 97.5
--- NOTE | 2020-05-31 16:00 | NUR ---
Patient arrived to the floor at 1500. Completed admission assessments. Went over medication list with patient. His has been at bedside. Patient denies pain at this time. No complaints of nausea. Oriented patient to room. He was upset because he thought he was just here for dialysis. Explained that we are waiting to hear from Dr Pierre because he has an elevated troponin. Patient has several scabs and abrasions to his toes and feet from falls. He stated he has not been able to walk lately and that when tries to walk more than a few steps he gets shakey and falls over. He has an abrasion to his left knee, no draingage, has some reddness, no bruising noted. Skin tear to left wrist, no drainage, dressed with gauze and coban. Patient stated his left hip is hurting and tender but no bruising noted. He has some bruising to lower right buttock from the fall. No other changes at this time. Call light within reach. Patient is alert and oreinted. Bed alarm on. Fall precautions in place.
[2020-05-31 16:50] VITALS: BP 134/56; PULSE 64
--- NOTE | 2020-05-31 17:15 | NUR ---
Patient is in dialysis at this time. Dr Pierre here to see patient as well as Dr Mckenna. Patients went home for the night. No other changes at this time.
[2020-05-31 20:00] VITALS: BP 101/54; PULSE 63; TEMP 97.5
--- NOTE | 2020-05-31 20:36 | NUR ---
Patient came back to the room at 20:15 pm from dialysis. Patient alert and oriented. Denies any pain or discomfort at this time. Right upper arm dialysis site covered with dry gauze. Dialysis site C/D/I. VS stable. Patient sitting up in bed and just finished up eating dinner at this time. Ate 50% of dinner. Bed alarm on, Call light within reach. Patient denies any needs at this time.
[2020-05-31 23:09] VITALS: BP 117/51; PULSE 62; TEMP 98.4
[2020-06-01 03:41] VITALS: BP 92/67; PULSE 88; TEMP 97.2
--- NOTE | 2020-06-01 06:18 | NUR ---
Patient slept well throughout the night. No c/o pain or discomfort. No acute distress noted.
[2020-06-01 08:38] LABS: BASO % 0.3 % (0.0-2.0); EOS # 0.2 (0.0-0.7); EOS % 2.3 % (0-4.0); GRAN # 6.7 (1.4-6.5); LYMPH # 2.1 (1.2-3.4); LYMPH % 21.4 % (20.0-51.0); MEAN CELL VOLUME 106 fl (80.0-100.0); MEAN CORPUSCULAR HGB CONC 32 g/dl (33.0-37.0); MEAN PLATELET VOLUME 10.5 fl (7.4-10.4); MONO # 0.6 (0.1-0.6); MONO % 6.3 % (1.7-9.3); PLATELET COUNT 205 K/mm3 (130-400); RED BLOOD COUNT 2.97 M/mm3 (4.20-5.60); REDCELL DISTRIBUTION WIDTH-CV 14.6 % (11.5-14.5)
[2020-06-01 08:39] LABS: HEMATOCRIT 31.4 % (42.0-52.0); HEMOGLOBIN 9.9 g/dl (13.5-18.0); MEAN CORPUSCULAR HEMOGLOBIN 33 pg (27.0-31.0)
[2020-06-01 08:49] LABS: CALCIUM 9.7 mg/dL (8.4-10.2); CREATININE, serum 8.82 (0.66-1.25); POTASSIUM 5.1 mmol/L (3.4-5.0)
[2020-06-01 08:56] LABS: INR 2.9 (0.8-3.0); PROTHROMBIN TIME 32.9 SECONDS (9.7-12.8)
--- NOTE | 2020-06-01 10:25 | NUR ---
Pt awake and alert upon entry this morning, no C/O pain currently. Shift assessments complete, left Pt call light in reach, bed in lowest position.
--- NOTE | 2020-06-01 15:41 | NUR ---
Consultant Technology met with the patient and his , Kika to complete intake. The patient lives in [place] with Kika. The patient has a walker, lift chair, and BiPAP. The patient receives support from his for ADLs. The patient states that his does everything for him. The patient's PCP is Dr. Miller and patient receives medications from [facility] in [place]. The patient does not have advanced directives in the EMR but states they are complete and designate Kika. The patient plans to return home with Kika's support. RALF consulted ROBBY Fulton Director in case the patient needs post acute rehab.
[2020-06-01 15:59] VITALS: BP 109/44; PULSE 62; TEMP 98
--- NOTE | 2020-06-01 19:17 | NUR ---
Patient sitting up in bed and having dinner upon enter the room. Patient alert and oriented. Patient denies any chest pain, SOB, dizziness, N/V or diarrhea at this time. All scheduled meds given per JUN. Informed patient regarding NPO from midnight for Lexiscan tomorrow. Patient verbalized understanding. Call light within reach. Patient denies any needs at this time.
[2020-06-01 19:56] VITALS: BP 105/52; PULSE 67; TEMP 98.6
[2020-06-01 23:15] VITALS: BP 105/46; PULSE 72; TEMP 97.9
[2020-06-02] VITALS (11 sets, daily range): BP systolic 82–109; BP diastolic 39–60; PULSE 54–66; TEMP 97.3–97.6
[2020-06-02 06:46] LABS: BASO % 0.4 % (0.0-2.0); EOS # 0.2 (0.0-0.7); EOS % 1.4 % (0-4.0); GRAN # 7.4 (1.4-6.5); GRAN % 64.6 % (42.2-75.2); LYMPH % 25.9 % (20.0-51.0); MEAN CELL VOLUME 106 fl (80.0-100.0); MEAN CORPUSCULAR HGB CONC 32 g/dl (33.0-37.0); MEAN PLATELET VOLUME 10.9 fl (7.4-10.4); MONO # 0.8 (0.1-0.6); MONO % 7.1 % (1.7-9.3); PLATELET COUNT 204 K/mm3 (130-400); RED BLOOD COUNT 2.69 M/mm3 (4.20-5.60); REDCELL DISTRIBUTION WIDTH-CV 14.7 % (11.5-14.5)
[2020-06-02 06:57] LABS: ALBUMIN 3.5 gm/dL (3.5-5.0); CALCIUM 9.3 mg/dL (8.4-10.2); CREATININE, serum 10.16 (0.66-1.25); PHOSPHOROUS 4.5 mg/dL (2.5-4.5); POTASSIUM 5.7 mmol/L (3.4-5.0)
[2020-06-02 07:01] LABS: HEMATOCRIT 28.5 % (42.0-52.0); HEMOGLOBIN 9.1 g/dl (13.5-18.0); INR 2.5 (0.8-3.0); MEAN CORPUSCULAR HEMOGLOBIN 34 pg (27.0-31.0); PROTHROMBIN TIME 28.1 SECONDS (9.7-12.8)
--- NOTE | 2020-06-02 09:17 | NUR ---
Pt napping upon entry, in dialysis, no C/O pain at this time. Shift assessments complete, left Pt in dailsis.
--- NOTE | 2020-06-02 12:27 | NUR ---
Patient tolerated HD tx well, removed 800 mL of fluid. Next tx planned for Friday06/05/20 @ 0800.
--- NOTE | 2020-06-02 15:22 | NUR ---
Pt returned from [facility], transferred to bed, needs met.
--- NOTE | 2020-06-02 15:45 | NUR ---
Immigration Case Manager met with patient's to review discharge plan as patient is currently in a procedure. SW reviewed OT recommendation for post acute care. Patient's , Kika isn't sure if this is what they will want to do but understands this recommendation. Kika states she is open to having SW send referrals to [place] facilities including [facility], [facility], and [facility]. SW contacted these facilities and faxed referrals. SW will continue to follow.
--- NOTE | 2020-06-02 16:33 | NUR ---
Nathaly byrne [facility] advised they can accept with a negative COVID test.
--- NOTE | 2020-06-02 19:45 | NUR ---
Patient laying in bed upon and watching TV upon enter the room. Patient alert and oriented. No c/o chest pain, SOB/dyspnea,N/V or dizziness. Reports his toes hurt a little bit. Patient reports feeling very tired from dialysis today. Right upper arm dialysis site covered with dry guaze and dressing C/D/I. All scheduled meds given per JUN. Call light within reach. Patient denies any needs at this time.
[2020-06-03] VITALS (8 sets, daily range): BP systolic 86–107; BP diastolic 40–61; PULSE 40–68; TEMP 97.2–97.8
--- NOTE | 2020-06-03 05:59 | NUR ---
Patient slept well throughout the night. No c/o pain or discomfort. Patient states feeling better this morning. No acute distress noted throughout the night. Call light within reach. Will give report to day shift RN.
[2020-06-03 06:15] LABS: BASO % 0.4 % (0.0-2.0); EOS # 0.2 (0.0-0.7); EOS % 1.8 % (0-4.0); GRAN # 7.1 (1.4-6.5); GRAN % 69.4 % (42.2-75.2); LYMPH # 2.1 (1.2-3.4); LYMPH % 20.3 % (20.0-51.0); MEAN CELL VOLUME 106 fl (80.0-100.0); MEAN CORPUSCULAR HGB CONC 31 g/dl (33.0-37.0); MEAN PLATELET VOLUME 10.5 fl (7.4-10.4); MONO # 0.7 (0.1-0.6); PLATELET COUNT 202 K/mm3 (130-400); RED BLOOD COUNT 2.83 M/mm3 (4.20-5.60); REDCELL DISTRIBUTION WIDTH-CV 14.8 % (11.5-14.5)
[2020-06-03 06:21] LABS: ALBUMIN 3.5 gm/dL (3.5-5.0); CALCIUM 9.2 mg/dL (8.4-10.2); CREATININE, serum 6.32 (0.66-1.25); PHOSPHOROUS 4.3 mg/dL (2.5-4.5); POTASSIUM 4.7 mmol/L (3.4-5.0)
[2020-06-03 06:35] LABS: HEMOGLOBIN 9.4 g/dl (13.5-18.0); MEAN CORPUSCULAR HEMOGLOBIN 33 pg (27.0-31.0)
[2020-06-03 06:39] LABS: INR 1.8 (0.8-3.0); PROTHROMBIN TIME 20.1 SECONDS (9.7-12.8)
--- NOTE | 2020-06-03 07:39 | NUR ---
PT SLEEPING IN ROOM
--- NOTE | 2020-06-03 08:45 | NUR ---
PT PLEASANT,AOX4, PT REPORTS PAIN 8/10 IN TOES, TOES VISUALIZED WITH NECROTIC ULCERS, TYLENOL GIVEN WITH OTHER MEDICATIONS. TREMORS IN BUE AND BLE EXTREMITIES. PT ASSESSMENT PERFORMED, VITALS REVIEWED, PT REPOSITIONED IN BED, GOWN PUT BACK ON PT.
--- NOTE | 2020-06-03 09:46 | NUR ---
SW spoke with RN. Patient will not discharge home today due to possible toe amputation on Monday 06/05. Patient does not have resulted Covid-19 test for [facility]. Social work will continue to follow.
--- NOTE | 2020-06-03 11:34 | NUR ---
Employment Director visited and offered support with patient. Nothing else needed.
--- NOTE | 2020-06-03 17:40 | NUR ---
PT IN BED, HAVING TREMORS, REPORTS PAIN IN TOES, HAD TYLENOL X1. HAS REACHED LIMIT ON FLUID RESTRICTION.NO OTHER NEEDS.
--- NOTE | 2020-06-03 21:33 | NUR ---
Patient resting in bed watching tv. Complains of pain in his feet. Tylenol administered with night medications. Assessment complete. No other needs at this time. Call light is within reach.
[2020-06-04 03:09] VITALS: BP 110/54; PULSE 66; TEMP 97.3
--- NOTE | 2020-06-04 05:30 | NUR ---
Patient slept off and on throughout the night. Some complaints of pain in his feet and toes. Tylenol for pain. Patient agreeable to his fluid restriction. No other needs at this time. Will report off to day shift.
[2020-06-04 06:50] LABS: BASO # 0.1 (0.0-0.2); BASO % 0.5 % (0.0-2.0); EOS # 0.2 (0.0-0.7); EOS % 2.1 % (0-4.0); GRAN # 6.4 (1.4-6.5); GRAN % 63.8 % (42.2-75.2); LYMPH # 2.5 (1.2-3.4); LYMPH % 24.8 % (20.0-51.0); MEAN CELL VOLUME 105 fl (80.0-100.0); MEAN CORPUSCULAR HGB CONC 32 g/dl (33.0-37.0); MEAN PLATELET VOLUME 10.8 fl (7.4-10.4); MONO # 0.8 (0.1-0.6); MONO % 7.6 % (1.7-9.3); PLATELET COUNT 212 K/mm3 (130-400); RED BLOOD COUNT 2.87 M/mm3 (4.20-5.60); REDCELL DISTRIBUTION WIDTH-CV 14.7 % (11.5-14.5)
[2020-06-04 06:52] LABS: HEMATOCRIT 30.2 % (42.0-52.0); HEMOGLOBIN 9.5 g/dl (13.5-18.0); MEAN CORPUSCULAR HEMOGLOBIN 33 pg (27.0-31.0)
[2020-06-04 07:08] LABS: ALBUMIN 3.6 gm/dL (3.5-5.0); CALCIUM 9.2 mg/dL (8.4-10.2); CREATININE, serum 7.96 (0.66-1.25); PHOSPHOROUS 4.4 mg/dL (2.5-4.5); POTASSIUM 5.1 mmol/L (3.4-5.0)
--- NOTE | 2020-06-04 07:37 | NUR ---
PT RESTING IN BED. REQUESTING FLUIDS. INFORMED PT OF THE STRICT 700ML FLUID RESTRICT, HE IS AWARE, CHARTING 150ML OF WATER FOR BREAKFAST. PT HAS ULCERS ON TOES, PLACED ZEROFORM AND NONADHERENT PADDING BETWEEN GREAT TOE AND SECOND TOE FOR PADDING TO KEEP THE TOES FROM RUBBING AGAINST EACH OTHER. NO OTHER CONCERNS PT ASSESSMENT IS COMPLETED. WILL CONTINUE TO MONITOR. CALL LIGHT WITHIN REACH, BED ALARM ON.
[2020-06-04 09:00] VITALS: BP 107/50; PULSE 71; TEMP 97.3
--- NOTE | 2020-06-04 11:17 | NUR ---
PROVIDED BED BATH FOR PATIENT. PT HAD BOWEL SMEAR, BUT STATED HE DID NOT WANT TO WEAR A BRIEF, CORTNEY PAD PLACED APPROPRIATELY FOR ANY INCONTINENCE. NO OTHER CONCERNS AT THIS TIME. WILL CONTINUE TO MONITOR.
[2020-06-04 12:00] VITALS: BP 90/39; BP 94/40; PULSE 62; TEMP 98
--- NOTE | 2020-06-04 12:58 | NUR ---
PT IN BED, DENIES ANY NEEDS AT THIS TIME.
[2020-06-04 15:26] LABS: INR 1.6 (0.8-3.0); PROTHROMBIN TIME 18.3 SECONDS (9.7-12.8)
[2020-06-04 20:00] VITALS: BP 101/43; PULSE 63; TEMP 97.6
--- NOTE | 2020-06-04 20:30 | NUR ---
PATIENT WAS RECEIVED IN BED CALM,DUE MEDS GIVEN,ASSESSMENT DONE.DENIES PAIN.NO OTHER NEEDS AT THIS TIME.
[2020-06-05 00:24] VITALS: BP 106/42; PULSE 61; TEMP 97.7
[2020-06-05 02:59] VITALS: BP 108/48; PULSE 61; TEMP 98.1
[2020-06-05 05:54] LABS: BASO # 0.1 (0.0-0.2); BASO % 0.4 % (0.0-2.0); EOS # 0.2 (0.0-0.7); EOS % 1.7 % (0-4.0); GRAN # 7.3 (1.4-6.5); GRAN % 64.3 % (42.2-75.2); LYMPH # 2.9 (1.2-3.4); LYMPH % 25.3 % (20.0-51.0); MEAN CELL VOLUME 103 fl (80.0-100.0); MEAN CORPUSCULAR HGB CONC 32 g/dl (33.0-37.0); MEAN PLATELET VOLUME 10.7 fl (7.4-10.4); MONO # 0.8 (0.1-0.6); MONO % 7.2 % (1.7-9.3); PLATELET COUNT 222 K/mm3 (130-400); RED BLOOD COUNT 2.75 M/mm3 (4.20-5.60); REDCELL DISTRIBUTION WIDTH-CV 14.8 % (11.5-14.5)
[2020-06-05 05:55] LABS: HEMATOCRIT 28.4 % (42.0-52.0); MEAN CORPUSCULAR HEMOGLOBIN 33 pg (27.0-31.0)
[2020-06-05 06:01] LABS: INR 1.4 (0.8-3.0); PROTHROMBIN TIME 15.9 SECONDS (9.7-12.8)
[2020-06-05 06:05] LABS: ALBUMIN 3.5 gm/dL (3.5-5.0); CALCIUM 9.3 mg/dL (8.4-10.2); CREATININE, serum 9.38 (0.66-1.25); PHOSPHOROUS 4.3 mg/dL (2.5-4.5); POTASSIUM 5.7 mmol/L (3.4-5.0)
--- NOTE | 2020-06-05 07:22 | NUR ---
Lying in bed with eyes open. Alert and oriented x4. Having pain in bilat feet that he rates 9/10, describes as "bad" and constant. Administer Tylenol as prescribed per patient request. Patient has bruising to bilat arms. Discuss with the patient that he is to have MANI, CT neck, and dialysis today and that I have not heard on what time all of this will happen today. Patient verbalizes understanding. Denies additional needs at this time.
[2020-06-05 08:31] VITALS: BP 109/51; PULSE 75; TEMP 97.7
--- NOTE | 2020-06-05 09:46 | NUR ---
Discuss with the patient process for COVID swab collection and specimen collected and sent to lab at this time. Review consent with the patient for MANI procedure. Questions answered and patient was also provided with patient education material on MANI. Patient signs consent at this time, will place in chart. Discuss with the patient that we will need to take him to [facility] for his procedure via bed at around 1025. Explain that this afternoon we will also get him to dialysis and RT is wanting to perform his EEG at some time. Patient verbalizes understanding. Denies additional needs at this time.
--- NOTE | 2020-06-05 10:18 | NUR ---
Patient to [facility] via bed for MANI procedure. Era with dialysis would like the patient to come to her as soon as the MANI is done, this was relayed to KELLY Kimbrough.
--- NOTE | 2020-06-05 10:27 | NUR ---
Coating Mixer faxed updates to SNFs.
--- NOTE | 2020-06-05 11:00 | NUR ---
pt to CT scanner, chest CT done, Dr Palacios into see pt concerning cancelling procedure today. 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 instructed pt if not heard from Physician by tomorrow afternoon to call office. IV d'cd intact, pt dressed and discharged amb. to car with , [phone]
--- NOTE | 2020-06-05 11:52 | NUR ---
Patient brought up to dialysis via bed by KELLY Agarwal, from MANI. Patient is alert and oriented x4 but groggy. Denies needs at this time.
--- NOTE | 2020-06-05 12:44 | NUR ---
Check on patient in dialysis. Lying in bed with eyes open. Says that he feels tired. Encourage patient to rest. Says that if he leaves his feet still there is minimal pain but pain increases any time feet are moved or touched. Patient denies needs at this time.
--- NOTE | 2020-06-05 13:41 | NUR ---
CALLED RN AT 0900 TO SEE IF PATIENT WAS AVAILABLE, BUT PATIENT WAS SCHEDULED FOR 2 OTHER PROCEDURES AND GOING TO THEM NOW, BUT PATIENT WAS AVAILABLE ANY OTHER TIME. WENT TO SEE PATIENT FOR EEG AT 0130 AND PATIENT WAS TAKEN TO DIALYSIS. WILL SEE PATIENT TOMORROW FOR PROCEDURE.
[2020-06-05 15:57] VITALS: BP 104/47; PULSE 67; TEMP 97.3
--- NOTE | 2020-06-05 16:29 | NUR ---
Patient lying in bed in room. Was able to eat a sandwich tray without any issues. Would like some Tylenol for pain in feet. Will administer as prescribed. Denies additional needs.
--- NOTE | 2020-06-05 18:14 | NUR ---
Lying in bed in supine position with eyes open watching TV. Denies needs or concerns.
--- NOTE | 2020-06-05 20:00 | NUR ---
PATIENT WAS RECEIVED FAIR IN BED.DUE MEDS GIVEN ASSESSMENT DONE.PATIENT REPORTS PAIN ON THE FEET REPOSITIONED.HAD A BM.NO OTHER NEEDS AT THIS TIME
[2020-06-05 20:15] VITALS: BP 91/39; PULSE 60; TEMP 98.2
[2020-06-05 23:22] VITALS: BP 97/45; PULSE 70; TEMP 97.5
[2020-06-06] VITALS (10 sets, daily range): BP systolic 83–1158; BP diastolic 32–91; PULSE 61–152; TEMP 97.4–98.4
--- NOTE | 2020-06-06 07:11 | NUR ---
PATIENT HAD A GOOD NIGHT SLEEP,DUE MEDS GIVEN.DENIES PAIN.NO NEEDS AT THIS TIME
[2020-06-06 07:23] LABS: BASO # 0.1 (0.0-0.2); BASO % 0.6 % (0.0-2.0); EOS # 0.2 (0.0-0.7); EOS % 1.4 % (0-4.0); GRAN # 7.3 (1.4-6.5); GRAN % 69.4 % (42.2-75.2); LYMPH # 2.1 (1.2-3.4); LYMPH % 19.8 % (20.0-51.0); MEAN CELL VOLUME 104 fl (80.0-100.0); MEAN CORPUSCULAR HGB CONC 31 g/dl (33.0-37.0); MEAN PLATELET VOLUME 10.8 fl (7.4-10.4); MONO # 0.8 (0.1-0.6); MONO % 7.4 % (1.7-9.3); PLATELET COUNT 226 K/mm3 (130-400); REDCELL DISTRIBUTION WIDTH-CV 15.1 % (11.5-14.5)
[2020-06-06 07:29] LABS: HEMOGLOBIN 9.1 g/dl (13.5-18.0); MEAN CORPUSCULAR HEMOGLOBIN 33 pg (27.0-31.0)
[2020-06-06 07:35] LABS: ALBUMIN 3.5 gm/dL (3.5-5.0); CALCIUM 9.3 mg/dL (8.4-10.2); CREATININE, serum 5.72 (0.66-1.25); PHOSPHOROUS 3.8 mg/dL (2.5-4.5); POTASSIUM 4.8 mmol/L (3.4-5.0)
[2020-06-06 07:36] LABS: INR 1.4 (0.8-3.0); PROTHROMBIN TIME 15.3 SECONDS (9.7-12.8)
--- NOTE | 2020-06-06 10:39 | NUR ---
Assessment complete. Patient sitting up in bed alert, oriented and pleasant at this time. No complaints of pain or discomfort except while moved around. Patient stated that he cannot stand up when speakingabout orthostatic blood pressures, PT will assist with this later. He is aware of his fluid restriction at this time. Continuing to montior patient. Call light is in reach.
--- NOTE | 2020-06-06 13:54 | NUR ---
Newspaper Editor Managing faxed updates to [facility], Jamil Yusuf and Jd. Brian from [facility] reports he can tentatively accept the patient. Nathaly from [facility] reports they can accept the patient. Tomas with Jd reports they are good to accept but just need to get Dr. Lorenzo on. SW collaborated the above information with the team.
--- NOTE | 2020-06-06 18:11 | NUR ---
Patient has had an uneventful shift. He was incontinent a few times this morning and was frustrated with the diarrhea, he informed Dr. Pierre of this, no new orders. Incontinent cares were provided for this. Patient has not complained of pain in his foot all day but did report pain after moving around with PT earlier in the day, PRN tylenol was given for this. Patient was repositioned multiple times throughout the day. No other needs were expressed at this time. Call light is in reach. Continueing to monitor.
--- NOTE | 2020-06-06 20:00 | NUR ---
PATIENT IS CALM IN THE ROOM.DUE MEDS GIVEN,ASSESSMENT DONE.REPORTS PAIN AT 6/10.OFFERED PAIN MEDS DECLINED.NO OTHER NEEDS AT THIS TIME.
[2020-06-07 03:39] VITALS: BP 102/54; PULSE 65; TEMP 98.4
--- NOTE | 2020-06-07 04:24 | NUR ---
PATIENT HAD A RESTFUL NIGHT.NO CONCERNS THIS MORNING.NO DIARRHEA
[2020-06-07 07:08] LABS: BASO % 0.4 % (0.0-2.0); EOS # 0.2 (0.0-0.7); EOS % 1.6 % (0-4.0); GRAN # 6.9 (1.4-6.5); GRAN % 66.5 % (42.2-75.2); LYMPH # 2.3 (1.2-3.4); LYMPH % 22.3 % (20.0-51.0); MEAN CELL VOLUME 104 fl (80.0-100.0); MEAN CORPUSCULAR HGB CONC 32 g/dl (33.0-37.0); MEAN PLATELET VOLUME 10.7 fl (7.4-10.4); MONO # 0.8 (0.1-0.6); MONO % 7.9 % (1.7-9.3); PLATELET COUNT 206 K/mm3 (130-400); RED BLOOD COUNT 2.34 M/mm3 (4.20-5.60); REDCELL DISTRIBUTION WIDTH-CV 15.6 % (11.5-14.5)
[2020-06-07 07:17] LABS: HEMATOCRIT 24.3 % (42.0-52.0); HEMOGLOBIN 7.8 g/dl (13.5-18.0); INR 1.3 (0.8-3.0); MEAN CORPUSCULAR HEMOGLOBIN 33 pg (27.0-31.0); PROTHROMBIN TIME 14.1 SECONDS (9.7-12.8)
[2020-06-07 07:25] VITALS: BP 99/41; PULSE 62; TEMP 98
[2020-06-07 07:27] LABS: ALBUMIN 3.1 gm/dL (3.5-5.0); CREATININE, serum 6.97 (0.66-1.25); PHOSPHOROUS 3.9 mg/dL (2.5-4.5); POTASSIUM 5.5 mmol/L (3.4-5.0)
--- NOTE | 2020-06-07 08:15 | NUR ---
PT PLEASANT, AOX4, SITTING UP EATING BREAKFAST AT TIME OF ENTRY, MEDICATIONS GIVEN, PT REPORTING PAIN IN RAHUL FEET, HEELS FLOATED ON PILLOWS, ULCERS PRESENT ON TOES, PT HAS TREMORS PRESENT, ASSESSMENT PERFORMED, VITALS REVIEWED, CALL LIGHT AT BEDSIDE. AROUND 0900 RECIEVED CALL FROM DIALYSIS NURSE AND PT WAS TRANSPORTED TO DIALYSIS IN THE BED.
--- NOTE | 2020-06-07 14:45 | NUR ---
Development Assistant faxed updates to [facility], and Jd. RALF collaborated with Dr. Pierre who advised patient receives dialysis in [place] and requested referral be sent to [facility]. RALF faxed referral and left a message for Shanthi, Digital Project Coordinator.
[2020-06-07 16:26] VITALS: BP 104/35; PULSE 77; TEMP 97.8
--- NOTE | 2020-06-07 17:41 | NUR ---
PT PLEASANT, AOX4, DROWSY IN ROOM FROM DIALYSIS, REPORTS L HAND TENDERNESS BY SKIN TEAR, ECCHYMOSIS AROUND STERISTRIPS PRESENT. PT REPORTS NOT WANTING DINNER TONIGHT SO PHOSLO HELD. PT UP WITH SIT TO STAND LIFT, REFUSED GOING TO THE CHAIR. NO OTHER NEEDS
[2020-06-07 19:35] VITALS: BP 116/52; PULSE 77; TEMP 97.8
[2020-06-07 23:46] VITALS: BP 112/56; PULSE 78; TEMP 98.1
[2020-06-08 04:41] VITALS: BP 113/56; PULSE 62; TEMP 98.6
[2020-06-08 07:02] LABS: BASO % 0.4 % (0.0-2.0); EOS # 0.2 (0.0-0.7); EOS % 1.7 % (0-4.0); GRAN # 7.6 (1.4-6.5); GRAN % 72.7 % (42.2-75.2); LYMPH # 1.7 (1.2-3.4); LYMPH % 15.9 % (20.0-51.0); MEAN CELL VOLUME 107 fl (80.0-100.0); MEAN CORPUSCULAR HGB CONC 32 g/dl (33.0-37.0); MEAN PLATELET VOLUME 10.6 fl (7.4-10.4); MONO # 0.8 (0.1-0.6); MONO % 8.1 % (1.7-9.3); PLATELET COUNT 229 K/mm3 (130-400); RED BLOOD COUNT 2.55 M/mm3 (4.20-5.60); REDCELL DISTRIBUTION WIDTH-CV 16.3 % (11.5-14.5)
[2020-06-08 07:05] LABS: HEMATOCRIT 27.3 % (42.0-52.0); HEMOGLOBIN 8.6 g/dl (13.5-18.0); MEAN CORPUSCULAR HEMOGLOBIN 34 pg (27.0-31.0)
[2020-06-08 07:14] LABS: ALBUMIN 3.4 gm/dL (3.5-5.0); CALCIUM 9.2 mg/dL (8.4-10.2); CREATININE, serum 4.74 (0.66-1.25); PHOSPHOROUS 3.4 mg/dL (2.5-4.5); POTASSIUM 4.8 mmol/L (3.4-5.0)
[2020-06-08 07:21] VITALS: BP 103/43; PULSE 62; TEMP 98.3
--- NOTE | 2020-06-08 07:40 | NUR ---
PT PLEASANT BUT FRUSTRATED WITH HIS SITUATION. PT AOX4, REPORTING PAIN IN TOES BUT SAYS THE TYLENOL DID HELP. ASSESSMENT PERFORMED, VITALS REVIEWED, NO OTHER NEEDS.
--- NOTE | 2020-06-08 10:10 | NUR ---
Candle Wicker contacted Shanthi at [facility] regarding acceptance for the patient. Shanthi was in a care plan meeting, left message.
--- NOTE | 2020-06-08 10:15 | NUR ---
tylenol given to pt per pt request, more cranberry juice brought in, pt boosted in bed and repositioned, no other needs.
[2020-06-08 12:53] VITALS: BP 100/47; PULSE 75; TEMP 97.5
--- NOTE | 2020-06-08 14:28 | NUR ---
Industrial Truck Driver Rebekah faxed updates to [facility], [facility], and [facility]. Industrial Truck Driver [facility] the updates. Nathaly inquired about the patient's loose stools and if there was going to be cdiff test and Dr. Pierre' comfortabilty with the patients ability to go [facility]. Nathaly reports they would like to see how the patient does after dialysis on 06/09. A new covid test will need to be ordered. RALF staffed with the patient's nurse. Per nurse it is believed that the loose stools were caused by the Phoslo the patient was taking. SW collaborated the above information with the patient's nurse.
[2020-06-08 16:41] VITALS: BP 107/44; PULSE 59; TEMP 98
--- NOTE | 2020-06-08 17:08 | NUR ---
pt pleasant, aox4, reporting pain in chela toes, needs another covid swab for placement, pt denies any other needs.
[2020-06-08 20:09] VITALS: BP 114/48; PULSE 71; TEMP 98.6
[2020-06-09] VITALS (8 sets, daily range): BP systolic 100–117; BP diastolic 39–85; PULSE 60–77; TEMP 97.7–98.5
--- NOTE | 2020-06-09 07:00 | NUR ---
Report received from KELLY Cervantes. pT in bed resting with eyes closed, wakens easily upon entry, wondering when HD is today, will enquire and continue to monitor.
[2020-06-09 07:18] LABS: BASO % 0.4 % (0.0-2.0); EOS # 0.2 (0.0-0.7); EOS % 1.8 % (0-4.0); GRAN # 7.1 (1.4-6.5); GRAN % 67.5 % (42.2-75.2); LYMPH # 2.3 (1.2-3.4); LYMPH % 21.6 % (20.0-51.0); MEAN CELL VOLUME 106 fl (80.0-100.0); MEAN CORPUSCULAR HGB CONC 32 g/dl (33.0-37.0); MEAN PLATELET VOLUME 10.4 fl (7.4-10.4); MONO # 0.8 (0.1-0.6); MONO % 7.7 % (1.7-9.3); PLATELET COUNT 213 K/mm3 (130-400); RED BLOOD COUNT 2.39 M/mm3 (4.20-5.60); REDCELL DISTRIBUTION WIDTH-CV 16.6 % (11.5-14.5)
[2020-06-09 07:20] LABS: HEMATOCRIT 25.4 % (42.0-52.0); HEMOGLOBIN 8.1 g/dl (13.5-18.0); MEAN CORPUSCULAR HEMOGLOBIN 34 pg (27.0-31.0)
[2020-06-09 07:25] LABS: ALBUMIN 3.2 gm/dL (3.5-5.0); CREATININE, serum 6.53 (0.66-1.25); PHOSPHOROUS 3.8 mg/dL (2.5-4.5); POTASSIUM 4.9 mmol/L (3.4-5.0)
--- NOTE | 2020-06-09 09:32 | NUR ---
Assessment charted before pt went to dialysis. Pt able to eat some breakfast, took some am meds. Will clarify aspirin orders as he has a 325 and 81 mg ordered. TOes have necrotic ulcers. Pt able to sit up without assistance. INT to LA/C. AV fistula to NEPTALI, thrill and bruit present. Denies pain, will continue to monitor.
[2020-06-09] MEDS ORDERED: PLAVIX 75MG TAB75 MG PO (11:08)
[2020-06-09] MEDS ORDERED: ULTRAM 50MG TAB50 MG PO (11:10)
[2020-06-09] MEDS ORDERED: TYLENOL 500MG500 MG PO (11:11)
[2020-06-09] MEDS ORDERED: SINEMET 25/101 UDTAB PO (11:12)
[2020-06-09] MEDS ORDERED: ANTI-DIARRHEAL2 MG PO (11:12)
[2020-06-09] MEDS ORDERED: VITAMIN C500 MG PO (11:13)
--- NOTE | 2020-06-09 11:28 | NUR ---
Covid-19 results pending. Jamil Yusuf will be able to admit either this day or tomorrow 06/10.
--- NOTE | 2020-06-09 13:07 | NUR ---
Cleaned and changed dressings to feet bilaterally, various open ulcerative areas betweeen toes and on outside of toes. Heels have large unstageable uclers. Floated heels, placed heel protectors and heel pillows. will continue to monitor.
--- NOTE | 2020-06-09 13:42 | NUR ---
Primary nurse was assisted with [phone] patient care by [employer] student Marycruz Acosta and [employer] instructor Madeline Solorio RN-.
--- NOTE | 2020-06-09 14:52 | NUR ---
Cad Detailer met with the patient and the patient's to review the discharge plan. They are in agreeance to discharging to [facility].
--- NOTE | 2020-06-09 17:56 | NUR ---
Pt resting in bed this afternoon, was at bedside for most of day and left earlier. Discussed with lab, social work and Dr. Pierre that pt will not leave for [facility] until PCR Covid swabs are resulted which has not been resulted yet. Pt denies needs, heels remain floated. Will give report to nightshift nusre who will resume care.
--- NOTE | 2020-06-09 19:50 | NUR ---
Patient assessed at this time. Alert and oriented x 4. Reported pain to bilateral feet. Given PRN APAP as requested. Peripheral INT to left AC. Fistula to RUE, positive bruit and thrill, and gauze in place. Denies having SOB and dyspnea. LS CTA in upper lobes, diminished in lower. Respirations even and unlabored. HRR. Capillary refill less than 3 seconds. Non-tenting skin turgor. BSAx4. Abdomen soft and non-tedner. 1+ edema BLE. Patient has sores to bilateral feet on heels and toes. Foam heel protectors on as well as aimee boots. Patient voices no questions, needs, or concerns at this time. Resting in bed with call light within reach.
[2020-06-10 04:10] VITALS: BP 103/56; PULSE 65; TEMP 98.2
--- NOTE | 2020-06-10 06:01 | NUR ---
Patient has been resting in bed with call light within reach. No further complaints of pain or discomfort this shift. Covid PCR test came back negative. Voices no questions, needs, or concerns at this time. Resting in bed with call light within reach.
--- NOTE | 2020-06-10 07:00 | NUR ---
Report received from KELLY Maki. PT in bed resting with eyes closed, will continue to monitor.
[2020-06-10 07:12] LABS: BASO # 0.1 (0.0-0.2); BASO % 0.5 % (0.0-2.0); EOS # 0.2 (0.0-0.7); EOS % 2.1 % (0-4.0); GRAN # 6.8 (1.4-6.5); GRAN % 67.1 % (42.2-75.2); LYMPH # 2.1 (1.2-3.4); LYMPH % 20.3 % (20.0-51.0); MEAN CELL VOLUME 110 fl (80.0-100.0); MEAN CORPUSCULAR HGB CONC 30 g/dl (33.0-37.0); MEAN PLATELET VOLUME 10.5 fl (7.4-10.4); MONO # 0.9 (0.1-0.6); PLATELET COUNT 227 K/mm3 (130-400); RED BLOOD COUNT 2.41 M/mm3 (4.20-5.60); REDCELL DISTRIBUTION WIDTH-CV 17.2 % (11.5-14.5)
[2020-06-10 07:16] LABS: ALBUMIN 3.3 gm/dL (3.5-5.0); CREATININE, serum 4.86 (0.66-1.25); HEMATOCRIT 26.4 % (42.0-52.0); MEAN CORPUSCULAR HEMOGLOBIN 33 pg (27.0-31.0); PHOSPHOROUS 3.8 mg/dL (2.5-4.5); POTASSIUM 4.5 mmol/L (3.4-5.0)
[2020-06-10 08:22] VITALS: BP 96/45; PULSE 71; TEMP 98.7
--- NOTE | 2020-06-10 09:50 | NUR ---
Assessment charted. Pt doing well, anticipating discharge to [facility] today at 1100 per Sherri SW. INT to LFA. NEPTALI AVFISTULA thrill and bruit present. Pain in feet, propped on pillows and tylenol provided. Ulcers to feet and unstageable to heels bilaterally. Will continue to monitor.
[2020-06-10 09:57] VITALS: BP 96/45; PULSE 71; TEMP 98.7
--- NOTE | 2020-06-10 12:06 | NUR ---
Discharged pt at thsi time, transfer to [facility]age house with all bleongings, at bedside. PT given bed bath and changed, sit to stand to get to w/c. INT to LA/C, tip intact. Report called to [facility] nurse who will resume care.
[2020-06-11 13:54] LABS: ANA SCREEN with REFLEX Negative (Negative)
== END 2020-06-10 11:50 | DRG 56 ==
LOC: COL.ER 10:58 → MEDICAL 11:56
PROVIDERS: Emergency Medicine; ADMIT Internal Medicine Nephrology
PROC: 5A1D70Z Performance of Urinary Filtration, Intermittent, Less than 6 Hours Per Day (ICD-10-PCS; principal; 2020-06-09)
DX: G20 Parkinson's disease (principal); N18.6 End stage renal disease; I12.0 Hypertensive chronic kidney disease with stage 5 chronic kidney disease or end stage renal disease; I48.20 Chronic atrial fibrillation, unspecified; I74.3 Embolism and thrombosis of arteries of the lower extremities; G25.3 Myoclonus; I99.8 Other disorder of circulatory system; D63.1 Anemia in chronic kidney disease; R19.7 Diarrhea, unspecified; E66.9 Obesity, unspecified; I34.0 Nonrheumatic mitral (valve) insufficiency; E78.5 Hyperlipidemia, unspecified; I25.10 Atherosclerotic heart disease of native coronary artery without angina pectoris; T45.515A Adverse effect of anticoagulants, initial encounter; N40.0 Benign prostatic hyperplasia without lower urinary tract symptoms; L97.521 Non-pressure chronic ulcer of other part of left foot limited to breakdown of skin; L97.511 Non-pressure chronic ulcer of other part of right foot limited to breakdown of skin; I73.9 Peripheral vascular disease, unspecified; Z99.2 Dependence on renal dialysis; Z79.01 Long term (current) use of anticoagulants; Z87.891 Personal history of nicotine dependence; Z88.2 Allergy status to sulfonamides; Z88.1 Allergy status to other antibiotic agents; Z20.822 Contact with and (suspected) exposure to COVID-19; Z68.31 Body mass index [BMI] 31.0-31.9, adult
CPT/HCPCS: A9500; G0378; J1644; J1650; J2405; J2704; J2785; J2916; J7030; Q5105; Q9967

== ENCOUNTER → 2020-07-03 | Outpatient (CLI) | payer OTHER, BC, MEDICARE ==
[~2020-07-03] MED LIST changes: +COREG 6.256.25 MG/TA PO; +MONODOX100 PO; +NEURONTIN100 MG/CAP PO; +PLAVIX 75MG TAB75 MG PO; +ROXANOL 20MG20 MG/ML PO; +SINEMET 25/101 UDTAB PO; +TYLENOL 500MG500 MG PO; +ULTRAM 50MG TAB50 MG PO; +VITAMIN C500 MG PO
== END ==
LOC: ZCOL.LAB 17:16
DX: L97.509 Non-pressure chronic ulcer of other part of unspecified foot with unspecified severity (principal)

== ENCOUNTER 2020-09-12 15:20 | Inpatient (IN) | payer MEDICARE, BC ==
[~2020-09-12] VITALS: Ht 188 cm; Wt 107.0 kg
[~2020-09-12 15:20] MED LIST changes: -COREG 6.256.25 MG/TA PO; -MONODOX100 PO; -ROXANOL 20MG20 MG/ML PO
[2020-09-14 07:08] VITALS: BP 1336/53; PULSE 63; TEMP 99.1
[2020-09-14] MEDS ORDERED: COREG12.5 MG PO (08:21)
[2020-09-14 11:31] VITALS: BP 139/57; PULSE 79; TEMP 98.9
--- NOTE | 2020-09-14 12:04 | NUR ---
First visit from the fuel oil clerk. No needs right now.
[2020-09-14 12:34] LABS: BASO # 0.1 (0.0-0.2); BASO % 0.3 % (0.0-2.0); EOS # 0.1 (0.0-0.7); EOS % 0.3 % (0-4.0); GRAN % 86.2 % (42.2-75.2); LYMPH # 1.3 (1.2-3.4); LYMPH % 6.7 % (20.0-51.0); MEAN CELL VOLUME 93 fl (80.0-100.0); MEAN CORPUSCULAR HEMOGLOBIN 29 pg (27.0-31.0); MEAN CORPUSCULAR HGB CONC 31 g/dl (33.0-37.0); MEAN PLATELET VOLUME 9.6 fl (7.4-10.4); MONO # 1.2 (0.1-0.6); MONO % 5.9 % (1.7-9.3); PLATELET COUNT 353 K/mm3 (130-400); RED BLOOD COUNT 3.42 M/mm3 (4.20-5.60)
[2020-09-14 12:44] LABS: HEMATOCRIT 31.8 % (42.0-52.0)
[2020-09-14 12:45] LABS: INR 1.5 (0.8-3.0); PROTHROMBIN TIME 16.6 SECONDS (9.7-12.8)
[2020-09-14 12:55] LABS: ALBUMIN 3.1 gm/dL (3.5-5.0); CALCIUM 8.7 mg/dL (8.4-10.2); CREATININE, serum 4.02 (0.66-1.25); PHOSPHOROUS 2.6 mg/dL (2.5-4.5); POTASSIUM 3.5 mmol/L (3.4-5.0)
--- NOTE | 2020-09-14 14:32 | NUR ---
Implementation Project Coordinator met with patient to discuss discharge planning. Patient's , Kika (ph#[phone], home#[phone]) is at bedside. Patient is currently a resident at [facility] and has been there since the beginning of May. Patient sees Dr. Miller for primary care. Patient states he was using a walker at [facility] but has recently been using a wheelchair. Patient states he has been requiring a lot of help from staff at [facility]. Patient advised that his , Kika is his DPOA-HC. Patient plans to return to [facility] upon discharge. SW contacted Nathaly at [facility] and faxed clinical updates. Discharge Plan: [facility]
--- NOTE | 2020-09-14 16:10 | NUR ---
Patient tolerated HD tx with 2 L fluid removal. Next planned HD tx on Friday09/16/20 @ 0800.
[2020-09-14 17:08] VITALS: BP 110/42; PULSE 60; TEMP 98.2
[2020-09-14 19:48] VITALS: BP 123/43; PULSE 63; TEMP 98
[2020-09-14 23:49] VITALS: BP 109/46; PULSE 61; TEMP 98.7
[2020-09-15] VITALS (14 sets, daily range): BP systolic 80–114; BP diastolic 34–72; PULSE 60–67; TEMP 97.6–98.8
--- NOTE | 2020-09-15 04:36 | NUR ---
IV initiated to left forarm x2 attempts. Patient brushed teeth at this time. Denies furhter needs at this time.
--- NOTE | 2020-09-15 06:36 | NUR ---
Patient doing well throughout the night. Complains of dry mouth, oral care provided to patient, mouth moisturizer provided. Patient going to surgery this AM. Takes AM meds with small sip of water. Denies needs at this time. Will report off to day shift.
[2020-09-15 06:48] LABS: BASO # 0.1 (0.0-0.2); BASO % 0.4 % (0.0-2.0); EOS # 0.1 (0.0-0.7); EOS % 0.8 % (0-4.0); GRAN # 13.6 (1.4-6.5); GRAN % 85.3 % (42.2-75.2); HEMOGLOBIN 10.1 g/dl (13.5-18.0); LYMPH # 1.3 (1.2-3.4); MEAN CELL VOLUME 97 fl (80.0-100.0); MEAN CORPUSCULAR HEMOGLOBIN 30 pg (27.0-31.0); MEAN CORPUSCULAR HGB CONC 31 g/dl (33.0-37.0); MEAN PLATELET VOLUME 9.9 fl (7.4-10.4); MONO # 0.7 (0.1-0.6); MONO % 4.6 % (1.7-9.3); PLATELET COUNT 347 K/mm3 (130-400); RED BLOOD COUNT 3.42 M/mm3 (4.20-5.60); REDCELL DISTRIBUTION WIDTH-CV 18.1 % (11.5-14.5)
[2020-09-15 06:54] LABS: HEMATOCRIT 33.1 % (42.0-52.0)
[2020-09-15 06:57] LABS: ALBUMIN 2.9 gm/dL (3.5-5.0); CALCIUM 8.6 mg/dL (8.4-10.2); CREATININE, serum 3.12 (0.66-1.25); PHOSPHOROUS 2.5 mg/dL (2.5-4.5); POTASSIUM 3.6 mmol/L (3.4-5.0)
--- NOTE | 2020-09-15 07:10 | NUR ---
Patient to OR by bed.
--- NOTE | 2020-09-15 11:37 | NUR ---
Pt back from procedure at this time. He is sleeping but will momentarily arouse to voice. He is currently on 6L O2 via OM, low BP. Brianna from nephrology notified of patient condition. LLE elevated on pillows with ice to site. Dressing CDI. SCD in place to RLE. POC discussed with patients . Call light within reach.
--- NOTE | 2020-09-15 12:07 | NUR ---
Pt requiring 10L O2 via OM, Brianna at bedside and updated.
--- NOTE | 2020-09-15 13:38 | NUR ---
Software Developer Intern faxed clinical updates to Jamil.
--- NOTE | 2020-09-15 18:17 | NUR ---
Pt very drowsy after surgery, woke up to eat lunch and occasionally for conversation. But quick to fall back asleep. Pain controlled. LLE elevated, ice in place. Pt repositioned to prevent breakdown. Call light within reach.
--- NOTE | 2020-09-15 19:13 | NUR ---
resting quietly, O2@5L per nc, hemovac to left stump, dressing to L stump is c/d/i, telemetry in use, call qureshi w/i reach, fall precautions in place, no c/o at this time, Will continue to monitor.
--- NOTE | 2020-09-15 23:23 | NUR ---
Resting quietly, L BKA with dressing c/d/i, ice pack in place, elevated on pillow patient rouses when talked to but drowsy, encouraged po intake, R upper arm fistula intact, telemetry in place, updated on plan of care.
[2020-09-16 03:28] VITALS: BP 92/41; PULSE 61; TEMP 97.8
[2020-09-16 06:41] LABS: BASO % 0.2 % (0.0-2.0); EOS # 0.2 (0.0-0.7); GRAN # 14.7 (1.4-6.5); GRAN % 88.4 % (42.2-75.2); LYMPH % 5.8 % (20.0-51.0); MEAN CELL VOLUME 95 fl (80.0-100.0); MEAN CORPUSCULAR HGB CONC 31 g/dl (33.0-37.0); MEAN PLATELET VOLUME 9.8 fl (7.4-10.4); MONO # 0.6 (0.1-0.6); MONO % 3.9 % (1.7-9.3); PLATELET COUNT 327 K/mm3 (130-400); RED BLOOD COUNT 3.01 M/mm3 (4.20-5.60); REDCELL DISTRIBUTION WIDTH-CV 17.7 % (11.5-14.5)
[2020-09-16 06:50] LABS: ALBUMIN 2.7 gm/dL (3.5-5.0); CALCIUM 7.8 mg/dL (8.4-10.2); CREATININE, serum 4.09 (0.66-1.25); HEMATOCRIT 28.7 % (42.0-52.0); HEMOGLOBIN 8.8 g/dl (13.5-18.0); MEAN CORPUSCULAR HEMOGLOBIN 29 pg (27.0-31.0); PHOSPHOROUS 3.6 mg/dL (2.5-4.5); POTASSIUM 3.9 mmol/L (3.4-5.0)
[2020-09-16 07:23] VITALS: BP 103/43; PULSE 61; TEMP 97.6
[2020-09-16 11:04] VITALS: BP 111/49; PULSE 59; TEMP 98
--- NOTE | 2020-09-16 13:49 | NUR ---
Patient tolerated HD tx with 200 mL fluid removal today due to hypotension. Next planned HD tx on Friday09/19/20 @ 0800.
[2020-09-16 15:15] VITALS: BP 109/39; PULSE 59; TEMP 97.8
--- NOTE | 2020-09-16 15:37 | NUR ---
REVIEWED HYPOTENSION WITH BRYSON ARZATE RN. OK AT PRESENT LEVELS.
--- NOTE | 2020-09-16 18:30 | NUR ---
Pt lethargic after po pain med given post dialysis able to arouse verbally. Pt resting in bed.
[2020-09-16 19:32] VITALS: BP 111/43; PULSE 65; TEMP 97.8
--- NOTE | 2020-09-16 20:06 | NUR ---
Awake, alert, oriented x 3, L BKA with dressing c/d/i, ice pack in place, elevated on pillow, call qureshi w/i reach, poor appetite noted, updated on plan of care. telemetry in use
[2020-09-16 23:16] VITALS: BP 97/45; PULSE 66; TEMP 98
[2020-09-17 04:04] VITALS: BP 105/39; PULSE 61; TEMP 97.9
[2020-09-17 06:32] LABS: BASO # 0.1 (0.0-0.2); BASO % 0.4 % (0.0-2.0); EOS # 0.1 (0.0-0.7); EOS % 0.8 % (0-4.0); GRAN # 13.7 (1.4-6.5); GRAN % 84.6 % (42.2-75.2); LYMPH # 1.4 (1.2-3.4); LYMPH % 8.6 % (20.0-51.0); MEAN CELL VOLUME 98 fl (80.0-100.0); MEAN CORPUSCULAR HGB CONC 31 g/dl (33.0-37.0); MONO # 0.8 (0.1-0.6); MONO % 4.8 % (1.7-9.3); PLATELET COUNT 351 K/mm3 (130-400); RED BLOOD COUNT 2.96 M/mm3 (4.20-5.60); REDCELL DISTRIBUTION WIDTH-CV 17.7 % (11.5-14.5)
[2020-09-17 06:41] LABS: ALBUMIN 2.7 gm/dL (3.5-5.0); CALCIUM 8.3 mg/dL (8.4-10.2); CREATININE, serum 3.79 (0.66-1.25); PHOSPHOROUS 2.8 mg/dL (2.5-4.5); POTASSIUM 3.9 mmol/L (3.4-5.0)
[2020-09-17 06:47] LABS: HEMATOCRIT 29.1 % (42.0-52.0); MEAN CORPUSCULAR HEMOGLOBIN 30 pg (27.0-31.0)
[2020-09-17 07:22] VITALS: BP 104/37; PULSE 65; TEMP 99.5
--- NOTE | 2020-09-17 08:22 | NUR ---
PT CONTINUES TO BE DROWSEY BUT AROUSES TO VERBAL, PAIN WELL CONTROLLED WITH PO PAIN MEDS. VSS, HYPOTENSIVE REVIEWED WITH BRYSON MENDOZAMEDICAL TRANSLATOR AND SHE IS COMFORTABLE WITH THIS LEVEL. PT CONTINUES TO NEED RIGHT BKA. NECROTIC FOOT WOUND MALODEROUS. PT IS NOT EATING WELL. REFUSING OFFERS OF MEALS. FLUIDS RESTICTED PER ORDERS.
--- NOTE | 2020-09-17 10:33 | NUR ---
PT'S HERE AT BEDSIDE. PROVIDED UPDATES PER ORTHO AND VERBALIZED UNDERSTANDING. PT AND PLANNING ON RETURNING TO [facility] SKILLED BED LATER THIS WEEK.
[2020-09-17 12:09] VITALS: BP 110/37; PULSE 60; TEMP 99.3
--- NOTE | 2020-09-17 15:29 | NUR ---
REPOSITIONED PT TO LEFT SIDE. COVERED BUTTOCKS WITH MEPILEX AND BARRIOR CREAM TO HELP WITH EXISTING BREAKDOWN.
[2020-09-17 16:03] VITALS: BP 105/42; PULSE 67; TEMP 99.4
[2020-09-17 21:29] VITALS: BP 110/44; PULSE 94; TEMP 100.8
--- NOTE | 2020-09-17 21:40 | NUR ---
PT DIFFICULT TO ROUSE. REPOSITIONED IN BED, HAS SIGNIFICANT DEEP TISSUE INJURY TO BOTH BUTTOCKS AND COCCYX AREA. MEPILEX REPLACED. MEDS CRUSHED IN APPLESAUCE. VSS.
[2020-09-18] VITALS (7 sets, daily range): BP systolic 96–122; BP diastolic 41–55; PULSE 58–69; TEMP 97.7–99.4
--- NOTE | 2020-09-18 05:35 | NUR ---
PT AWAKE, COMPLAINS OF FOOT PAIN. SCHEDULED AM MEDS INCLUDING OXYCODONE 5MG PO FOR PAIN. TAKES MEDS BETTER THIS AM, WHOLE WITH WATER.
--- NOTE | 2020-09-18 06:45 | NUR ---
PT SPILLED NEPHRO SHAKE, COMPLETE BED CHANGE DONE, REPOSITIONED TO RIGHT SIDE.
[2020-09-18 07:14] LABS: MEAN CELL VOLUME 95 fl (80.0-100.0); MEAN CORPUSCULAR HGB CONC 31 g/dl (33.0-37.0); PLATELET COUNT 370 K/mm3 (130-400); RED BLOOD COUNT 3.13 M/mm3 (4.20-5.60); REDCELL DISTRIBUTION WIDTH-CV 17.5 % (11.5-14.5)
[2020-09-18 07:19] LABS: HEMATOCRIT 29.7 % (42.0-52.0); HEMOGLOBIN 9.2 g/dl (13.5-18.0); MEAN CORPUSCULAR HEMOGLOBIN 29 pg (27.0-31.0)
[2020-09-18 07:20] LABS: ALBUMIN 2.6 gm/dL (3.5-5.0); CALCIUM 8.4 mg/dL (8.4-10.2); CREATININE, serum 5.03 (0.66-1.25); PHOSPHOROUS 3.6 mg/dL (2.5-4.5); POTASSIUM 3.9 mmol/L (3.4-5.0)
[2020-09-18 08:18] LABS: ANISOCYTOSIS 2+; EOSINOPHIL 2 % (0-4); HYPOCHROMIA 2+; LYMPHOCYTE 8 % (20.0-51.0); NEUTROPHILS 85 % (42.0-75.2); PLATELET ESTIMATE NORMAL (NORMAL)
[2020-09-18 08:19] LABS: OVALOCYTES 1+; POIKILOCYTOSIS 1+
--- NOTE | 2020-09-18 18:30 | NUR ---
Patient has been doing ok today. Tried to get him to eat more but he would not eat much. He has more pain this morning than this afternoon. No complaints of nausea. Dr Pierre started patient on antibiotics. Patient needs a lot of assistance with eating and cares. He is weak and has trouble holding his cups in either had. Offered to get him up to the chair but he stated he did not think he could handle it today. The tylenol seemed to help control his pain better. His was at bedside most the day.
--- NOTE | 2020-09-18 21:43 | NUR ---
PT ROUSES TO NAME. TAKES HS MEDS WITHOUT PROBLEM, INCLUDING ES TYLENOL FOR FOOT PAIN. DRESSING CHANGED TO RIGHT FOOT, NECROTIC TOES NOTED, MEPILEX TO RT HEEL. FOUL DRAINAGE PRESENT FROM TOES. DRSG TO LEFT STUMP D/I. MORE ALERT TONIGHT. MEPILEX INTACT TO COCCYX AND BUTTOCKS. DEEP TISSUE INJURY PRESENT TO BUTTOCKS.
--- NOTE | 2020-09-19 03:26 | NUR ---
USES CALL LIGHT. REPORTS PAIN TO FOOT, ES TYLENOL GIVEN.
[2020-09-19 03:37] VITALS: BP 117/48; PULSE 65; TEMP 97.4
[2020-09-19 07:41] VITALS: BP 114/44; PULSE 59; TEMP 97.5
--- NOTE | 2020-09-19 11:40 | NUR ---
NEPHROLOGY PANTS BUSHELER AT BEDSIDE AND REMOVED RIGHT FOOT DSG FOR TO ASSESS. NOTED SEVERAL, LARGE NARCOTIC AREAS THAT EXTEND UNDER THE FOOT WITH THE LAST THREE TOES COMPLETELY BLACK. FOOT HAS A STRONG ODOR. AT BEDSIDE
[2020-09-19] MEDS ORDERED: COREG 6.256.25 MG/TA PO (11:58)
[2020-09-19] MEDS ORDERED: MONODOX100 PO (12:06)
--- NOTE | 2020-09-19 12:10 | NUR ---
DONE ROUNDING. DIALYSIS NURSE CALLED TO TAKE PATIENT TO DIALYSIS SOON. APPLIED NEW 4X4, ABD, SOFT ROLL & STOCKING TO RLE. PATIENT USING THE BEDPAN BEFORE GOING TO DIALYSIS.
[2020-09-19 12:22] VITALS: BP 109/46; PULSE 65; TEMP 97.6
--- NOTE | 2020-09-19 15:28 | NUR ---
Highway Engineering Technician spoke with Brianna, Nurse Practitioner who advised Dr. Pierre spoke with patient about considering placement in [place]. SW met with patient's who advised she does not want alternative placement and wants patient to return to [facility] upon discharge. Patient's advised she feels everything is arranged at [facility] and this is the most convinient for the family. RALF contacted Nathaly at [facility] and faxed clinical updates. Patient to have dialysis this afternoon and is a potential discharge. Patient will not be done with dialysis until later this afternoon and Nathaly advised that the [facility] house he is from, [place] cannot accommodate that late of an admission. RALF notified Dr. Pierre who will plan for discharge tomorrow. COVID test ordered for patient. RALF also notified Dr. Pierre that Dr. Toth would like a call before discharge. RALF will continue to follow.
--- NOTE | 2020-09-19 16:41 | NUR ---
Patient tolerated HD tx with 1L fluid removal today.
[2020-09-19 18:08] VITALS: BP 112/51; PULSE 58; TEMP 97.7
[2020-09-19 19:35] VITALS: BP 94/45; PULSE 52; TEMP 97.5
--- NOTE | 2020-09-19 21:37 | NUR ---
Received report from KELLY Johnson. All medications verified and all questions answered. No concerns or complaints noted from patient at this time. Patient resting in bed watching TV. Will resume care of patient at this time.
[2020-09-20 00:16] VITALS: BP 97/50; PULSE 59; TEMP 98
[2020-09-20 04:04] VITALS: BP 104/43; PULSE 64; TEMP 98
[2020-09-20 07:48] VITALS: BP 109/39; PULSE 54; TEMP 98
--- NOTE | 2020-09-20 08:00 | NUR ---
PATIENT IS PARTIALLY ORIENTED AND DROWSY THIS AM. VSS. PATIENT SLEEPING WITHOUT COMPLAINTS. LEFT BKA DRESSING IS CD&I AND ELEVATED ON PILLOW. RLE FOOT DRESSING IS CD&I. PATIENT HAS MULTIPLE SKIN INTEG. ISSUES, SEE SHIFT ASSESSMENT. PATIENT IS SCHEDULED TO HAVE DIALYSIS TODAY. AM MEDS GIVEN. BREAKFAST TRAY ORDERED. RENAL DIET WITH 1,500CC FLUID RESTRICTION. RIGHT UPPERARM FISTULA AND LEFT WRIST IV TO INT. HEAD TO TOE ASSESSMENT COMPLETE. PLAN IS FOR PATIENT TO DISCHARGE BACK TO [facility] LATER TODAY.
--- NOTE | 2020-09-20 08:30 | NUR ---
PATIENT GOING DOWN TO DIALYSIS
[2020-09-20 08:40] LABS: MEAN CELL VOLUME 93 fl (80.0-100.0); MEAN CORPUSCULAR HGB CONC 31 g/dl (33.0-37.0); PLATELET COUNT 397 K/mm3 (130-400); RED BLOOD COUNT 3.15 M/mm3 (4.20-5.60); REDCELL DISTRIBUTION WIDTH-CV 17.8 % (11.5-14.5)
[2020-09-20 08:44] LABS: HEMATOCRIT 29.2 % (42.0-52.0); HEMOGLOBIN 9.1 g/dl (13.5-18.0); MEAN CORPUSCULAR HEMOGLOBIN 29 pg (27.0-31.0)
[2020-09-20 08:54] LABS: ALBUMIN 2.7 gm/dL (3.5-5.0); CALCIUM 8.5 mg/dL (8.4-10.2); CREATININE, serum 4.89 (0.66-1.25); PHOSPHOROUS 3.4 mg/dL (2.5-4.5); POTASSIUM 4.2 mmol/L (3.4-5.0)
[2020-09-20 09:08] LABS: BAND 4 % (0-10); EOSINOPHIL 2 % (0-4); LYMPHOCYTE 15 % (20.0-51.0); METAMYELOCYTE 3 % (0-0); NEUTROPHILS 72 % (42.0-75.2)
[2020-09-20 09:39] LABS: POIKILOCYTOSIS 2+
[2020-09-20 09:40] LABS: BURR CELLS 1+; OVALOCYTES 1+; PLATELET ESTIMATE INCREASED (NORMAL); SCHISTOCYTES 1+
[2020-09-20 09:42] LABS: HYPOCHROMIA 1+
--- NOTE | 2020-09-20 10:00 | NUR ---
PATIENT C/O PAIN IN BLE. WAS GIVEN PRN TYLENOL THIS AM BUT C/O INCREASED PAIN. GAVE PRN ROXICODONE.
--- NOTE | 2020-09-20 10:44 | NUR ---
Patient tolerated HD tx today with 740 mL fluid removal.
--- NOTE | 2020-09-20 10:50 | NUR ---
PATIENT BACK IN ROOM FROM DIALYSIS. SEE DISCHARGE ORDERS
[2020-09-20 11:46] VITALS: BP 97/40; PULSE 61; TEMP 97.5
[2020-09-20 12:44] VITALS: BP 97/40; PULSE 61; TEMP 97.5
--- NOTE | 2020-09-20 14:00 | NUR ---
PATIENT DISCHARGING BACK TO [facility] VIA VAN SERVICE. PATIENT HAS HIS OWN WC HERE. PT ASSISTED NURSING TO GET PATIENT VIA RASHAD LIFT INTO WC. PATIENT HAS PERSONAL BELONGINGS PACKED. DC'D TELE AND IV SITE, COVERED SITE WITH NELSON. SENT INFO PACKET WITH PATIENT. CALLED REPORT TO [facility] NURSE. PATIENT DISCHARGED.
--- NOTE | 2020-09-20 14:07 | NUR ---
Transitions Manager faxed clinical updates to Nathaly at [facility] who advised they can accept patient today. SW notified, Brianna FAUSTIN who advised Dr. Pierre would round at 1300 and put in discharge orders. RALF contacted Nathaly and set transport time for 1400. SW contacted patient's , Kika and provided transport time. RALF faxed discharge orders to Nathaly at [facility]. No additional needs at this time.
[2020-09-21 08:35] LABS: PATHOLOGY DIFF REVIEW OK
== END 2020-09-20 14:00 | DRG 474 ==
LOC: SURG 09-14 06:42
PROVIDERS: Orthopaedic Surgery; ADMIT Internal Medicine Nephrology
PROC: 0Y6J0Z3 Detachment at Left Lower Leg, Low, Open Approach (ICD-10-PCS; principal; 2020-09-15 07:30)
PROC: 5A1D70Z Performance of Urinary Filtration, Intermittent, Less than 6 Hours Per Day (ICD-10-PCS; 2020-09-19)
DX: M86.8X6 Other osteomyelitis, lower leg (principal); N18.6 End stage renal disease; I96 Gangrene, not elsewhere classified; I48.20 Chronic atrial fibrillation, unspecified; I13.2 Hypertensive heart and chronic kidney disease with heart failure and with stage 5 chronic kidney disease, or end stage renal disease; E66.9 Obesity, unspecified; D63.1 Anemia in chronic kidney disease; I49.5 Sick sinus syndrome; I50.9 Heart failure, unspecified; F17.210 Nicotine dependence, cigarettes, uncomplicated; I25.10 Atherosclerotic heart disease of native coronary artery without angina pectoris; G20 Parkinson's disease; E78.5 Hyperlipidemia, unspecified; I95.9 Hypotension, unspecified; E03.9 Hypothyroidism, unspecified; D72.829 Elevated white blood cell count, unspecified; N40.0 Benign prostatic hyperplasia without lower urinary tract symptoms; I27.20 Pulmonary hypertension, unspecified; I34.0 Nonrheumatic mitral (valve) insufficiency; Z20.822 Contact with and (suspected) exposure to COVID-19; Z88.2 Allergy status to sulfonamides; Z99.2 Dependence on renal dialysis; Z79.82 Long term (current) use of aspirin; Z79.02 Long term (current) use of antithrombotics/antiplatelets; Z88.1 Allergy status to other antibiotic agents; Z95.0 Presence of cardiac pacemaker; Z88.8 Allergy status to other drugs, medicaments and biological substances
CPT/HCPCS: J0690; J1644; J2370; J2405; J2704; J3010; J7030; Q5105

== ENCOUNTER 2020-09-27 16:01 | Emergency (ER) | payer MEDICARE, BC ==
[~2020-09-27 16:01] MED LIST changes: +COREG 6.256.25 MG/TA PO; +MONODOX100 PO
[2020-09-27 16:02] VITALS: TEMP 97.6
[2020-09-27 17:04] LABS: MEAN CELL VOLUME 97 fl (80.0-100.0); MEAN CORPUSCULAR HGB CONC 31 g/dl (33.0-37.0); MEAN PLATELET VOLUME 10.3 fl (7.4-10.4); PLATELET COUNT 348 K/mm3 (130-400); RED BLOOD COUNT 3.24 M/mm3 (4.20-5.60); REDCELL DISTRIBUTION WIDTH-CV 18.2 % (11.5-14.5)
[2020-09-27 17:14] LABS: BILIRUBIN,TOTAL 1.1 mg/dL (0.0-1.0); CALCIUM 8.2 mg/dL (8.4-10.2); CREATININE, serum 6.59 (0.66-1.25); POTASSIUM 4.9 mmol/L (3.4-5.0); TOTAL PROTEIN 6.2 gm/dL (6.4-8.2)
[2020-09-27 17:17] LABS: HEMATOCRIT 31.4 % (42.0-52.0); HEMOGLOBIN 9.6 g/dl (13.5-18.0); MEAN CORPUSCULAR HEMOGLOBIN 30 pg (27.0-31.0)
[2020-09-27 17:28] LABS: TROPONIN-I 0.182 ng/mL (0.000-0.035)
[2020-09-27 17:44] LABS: BAND 6 % (0-10); EOSINOPHIL 1 % (0-4); HYPOCHROMIA 3+; LYMPHOCYTE 5 % (20.0-51.0); METAMYELOCYTE 1 % (0-0); NEUTROPHILS 84 % (42.0-75.2); PLATELET ESTIMATE NORMAL (NORMAL)
[2020-09-27 17:45] LABS: ANISOCYTOSIS 1+; OVALOCYTES 1+; POIKILOCYTOSIS 1+
[2020-09-27] MEDS ORDERED: ROXANOL 20MG20 MG/ML PO (18:21)
[2020-09-27 19:01] VITALS: BP 133/57; PULSE 63
== END 2020-09-27 19:08 | disposition home or self-care (01) ==
LOC: COL.ER 16:01
PROVIDERS: Emergency Medicine
DX: S01.81XA Laceration without foreign body of other part of head, initial encounter (principal); S61.412A Laceration without foreign body of left hand, initial encounter; A41.9 Sepsis, unspecified organism; I13.2 Hypertensive heart and chronic kidney disease with heart failure and with stage 5 chronic kidney disease, or end stage renal disease; N18.6 End stage renal disease; I50.9 Heart failure, unspecified; J44.9 Chronic obstructive pulmonary disease, unspecified; E07.9 Disorder of thyroid, unspecified; I25.2 Old myocardial infarction; F17.210 Nicotine dependence, cigarettes, uncomplicated; R40.2410 Glasgow coma scale score 13-15, unspecified time; Z99.2 Dependence on renal dialysis; Z79.02 Long term (current) use of antithrombotics/antiplatelets; Z79.82 Long term (current) use of aspirin; Z79.899 Other long term (current) drug therapy; W19.XXXA Unspecified fall, initial encounter